=== PATIENT | female | born 1950 | race Caucasian/White ===

== ENCOUNTER 2022-03-13 10:47 | Outpatient (RCR) | payer MEDICARE, BC, SELFPAY | END 2022-05-11 12:13 | disposition home or self-care (01) | PROVIDERS: PCP Family Medicine; Visit Provider Family Medicine | DX: M17.0 Bilateral primary osteoarthritis of knee (principal); Z51.89 Encounter for other specified aftercare | CPT/HCPCS: 97110; 97161 ==

== ENCOUNTER 2022-08-31 08:27 | Day surgery (SDC) | payer MEDICARE, BC, SELFPAY ==
[2022-08-31] VITALS (24 sets, daily range): BP systolic 89–137; BP diastolic 53–91; PULSE 52–104; RESP 12–18; TEMP 35.8–36.8; O2SAT 90–100; BMI 40.4
--- NOTE | 2022-08-31 08:46 | CRLHL7_ITS ---
For Patients: As a result of the Cures Act, medical imaging exams and procedure reports are released immediately into your electronic medical record. You may view this report before your referring provider. If you have questions, please contact your health care provider. Indication: POST OP RIGHT TKA Technique: Two views right knee Findings/Impression: Hardware from a right total knee arthroplasty is in satisfactory position. Bone alignment is normal. No sign of acute fracture. Postop changes are within normal limits. Dictated by Denys Kent MD @ 08/31/2022 1:25:31 PM (Electronically Signed)
[2022-08-31] MEDS: SODIUM CHLORIDE 0.9 % (FLUSH) 10 ML SYRINGE IVF (09:09)
[2022-08-31] MEDS: LACTATED RINGERS 1000 ML 1,000 ML 100 ML IV ×2 (09:09→11:07)
[2022-08-31] MEDS: CELECOXIB 200 MG CAPSULE PO ×2 (09:15→20:37)
[2022-08-31] MEDS: OXYCODONE (CR) 10 MG TAB.ER.12H PO (09:15)
[2022-08-31] MEDS: ACETAMINOPHEN 500 MG TABLET 1000 MG PO ×2 (09:15→18:25)
--- NOTE | 2022-08-31 09:20 | W.ANESCHARGE ---
Anesthesia Charges Start Date/Time Anesthesia Start Date: 08/31/22 Anesthesia Start Time: 09:45 Stop Date/Time Anesthesia Stop Date: 08/31/22 Anesthesia Stop Time: 11:39 Summary Extremes of Age - Over 70 or under 1: MDA
[2022-08-31] MEDS: MIDAZOLAM HCL 1 MG/ML inj IVP (09:27)
[2022-08-31] MEDS: fentaNYL 100 MCG/2 ML inj IVP (09:27)
--- NOTE | 2022-08-31 09:31 | SUR.PREOP ---
TIME?OUT:?925 PT/Luci Garcia RN/Dr. Cortes MDA?VERIFICATION?OF?SURGICAL?SITE right knee,?PROCEDURE,?AND?CONSENT OBTAINED?PRIOR?TO?INVASIVE?PROCEDURE.
--- NOTE | 2022-08-31 09:54 | P.NB_ITS ---
Nerve Block Nerve Block Time Seen by Provider: 09:28 Date Seen: 08/31/22 Type of block requested by surgeon for post-operative analgesia: adductor canal Side: right Time out performed: Yes Verification of patient name: Yes Verification of date of : Yes Site marking: site marked Name of person performing procedure: Cortes Continuous monitoring Was continuous monitoring of O2 sat, B/P, monitoring coordinator, recorded every 15 minutes?: Yes Procedure Checklist: sterile prep, needles and gloves Ultrasound guided. Images saved: Yes Medications given in 5ml increments after negative aspiration: Ropivicaine %: 0.5 mL: 20 Needle gauge: 20 Decadron (mg): 10 Precedex (mcg): 25 Patient tolerated procedure well: Yes Additional comments: Needle noted adjacent to nerve Block Charges Block Charge (with Pro Fee): Femoral Nerve Use of Ultrasound Machine for Block: Yes- US Guidance/pain block
--- NOTE | 2022-08-31 09:54 | P.NB_ITS ---
Nerve Block Nerve Block Time Seen by Provider: 09:28 Date Seen: 08/31/22 Type of block requested by surgeon for post-operative analgesia: geniculars Side: left Time out performed: Yes Verification of patient name: Yes Verification of date of : Yes Site marking: site marked Name of person performing procedure: Cortes Continuous monitoring Was continuous monitoring of O2 sat, B/P, surfboard maker, recorded every 15 minutes?: Yes Procedure Checklist: sterile prep, needles and gloves Medications given in 5ml increments after negative aspiration: Ropivicaine %: 0.5 mL: 9 Needle gauge: 25 Patient tolerated procedure well: Yes Block Charges Block Charge (with Pro Fee): Genicular Nerve Block Use of Ultrasound Machine for Block: No
[2022-08-31] MEDS: CEFAZOLIN 2 GM in 0.9 % SODIUM CHLORIDE Mini-bag 100 ML IVPB ×2 (09:55→16:11)
[2022-08-31] MEDS: TRANEXAMIC ACID 100 MG/ML INJ 1000 MG IV (10:00)
--- NOTE | 2022-08-31 11:06 | P.ORPRC_ITS ---
Procedure Note Date of procedure: 08/31/22 Procedure: PREOPERATIVE DIAGNOSIS: 1. Right knee osteoarthritis, primary, severe POSTOPERATIVE DIAGNOSIS: 1. Right knee osteoarthritis, primary, severe PROCEDURE: 1. Right total knee arthroplasty SURGEON: Pratik Velásquez MD. EARLY CHILDHOOD: [place] ROWE - Of note, a skilled perinatal breastfeeding assistant was critical for this case to aid in patient positioning, tissue retraction, limb manipulation/positioning, and closure. ANESTHESIA: Spinal anesthetic IMPLANTS: DePuy J&J all cemented TKA - Attune PS femur size 5 narrow, size 5 tibia, 5 poly spacer, 35 mm patella TOURNIQUET: 75 minutes at 300 torr EBL: 50 ml COMPLICATIONS: None evident INDICATIONS: The patient is a pleasant 71-year-old female who has experienced severe right knee pain and difficulty bearing weight. Workup included x-rays which revealed severe osteoarthrosis in the knee. Given the deformity, the dysfunction, and the pain, as well as the failure of nonoperative management, recommendation was made for surgery. FINDINGS: Full-thickness chondral loss broadly throughout the medial and patellofemoral compartments. To a lesser degree but still significant lateral compartment chondromalacia. Large effusion upon entering the joint. Significant synovitis diffusely throughout the knee. DESCRIPTION OF PROCEDURE: Following a thorough discussion of risks, benefits, and alternatives consent was obtained and the right knee was marked. The patien t was brought to the operating room and placed supine on the operating table. Induction of anesthesia was undertaken. 2 g IV Ancef and 1 g tranexamic acid was administered within 1 hr of incision preoperatively. Proper time-out was performed identifying proper patient, site, procedure. The operative extremity was prepped and draped in the appropriate sterile fashion using ChloraPrep after the patient was positioned supine with all bony prominences well padded. A longitudinal, anterior, midline skin incision was made starting approximately 3cm proximal to the superior pole of the patella and advanced distal to the tibial tubercle. A median parapatellar arthrotomy was created. A medial subperiosteal sleeve was created with knife, tinajero elevator and curved osteotome. The retropatellar fatpad was resected and the synovium in the suprapatellar pouch excised to visualize the anterior femoral cortex. Femoral preparation was performed via an intramedullary guide. Step drill allowed access into the femoral canal. The distal cutting guide was placed with 5? of valgus and 10 mm cut on the distal femur. Femur was sized using a posterior referencing guide in 3? of external rotation. This found have a best fit with the sizing noted above. The 4 in 1 cutting block was then placed, and the distal femur shaped accordingly. The box cut was then created and the trial implant inserted to confirm appropriate fit. We turned our attention to the proximal tibia. Extramedullary guide was utilized for cutting with the goal of being 90 degree cut from the mechanical axis of the tibia in the varus/valgus plane utilizing tibial crest as the primary alignment. Initially a 2 mm resection was performed from the medial tibial plateau. Ultimately, balancing was achieved in both flexion and extension in both varus and valgus. The knee was able to achieve full extension as well comfortably. The patella was initially measured and found have a thickness of 21 mm. It was resected back to approximately 14 mm. It was sized to be a best fit with as noted above. This was drilled, trial placed. All trials were placed and found to have an excellent stability and balance. At this stage, trial implants were removed, the knee was thoroughly irrigated with normal saline, and the cement was mixed. After irrigation, the knee was thoroughly dried, and cement placed, with the real tibial and femoral implants placed along with the patella. Trial poly spacer was placed and confirmed to have excellent range of motion and full extension, and the real poly spacer opened and inserted. All extra cement was removed, and a 3 min Betadine soak performed. Finally, a final irrigation round with normal saline was performed. Closure performed with 0 Vicryl and #0 Stratafix for the quad ten don/retinaculum. 2-0 Vicryl for the subcutaneous and 4-0 Stratafix for subcuticular closure. Dressings were applied and the patient was awoken from anesthesia after the tourniquet deflated and transferred the PACU in stable condition. A skilled perinatal breastfeeding assistant was critical for this case to aid in patient positioning, tissue retraction, bone exposure, limb manipulation/positioning, patient safety, and closure. PLAN: 1. Weight bear as tolerated operative extremity. 2. 23 hr perioperative antibiotics. 3. Ice. 4. PT/OT consults for ambulation assistance/mobility education. 5. Social work consult for discharge planning. 6. DVT prophylaxis with at SCDs, Dru Hose, and aspirin twice daily.
--- NOTE | 2022-08-31 11:47 | W.ANESCHARGE ---
Anesthesia Charges Start Date/Time Anesthesia Start Date: 08/31/22 Anesthesia Start Time: 09:45 Stop Date/Time Anesthesia Stop Date: 08/31/22 Anesthesia Stop Time: 11:39 Summary Extremes of Age - Over 70 or under 1: PLANS EXAMINER
--- NOTE | 2022-08-31 14:20 | PM.IMCN1 ---
Date of Consult Patient: Michael Patient Consult date: 08/31/22 Requesting Physician: Orthopedics Primary Care Provider: Silvia Marina MD Consult Narrative Reason for consult: hypertension, hyperlipidemia Narrative: Jasmyn Benson is a 71 year old female who underwent an uneventful right total knee arthroplasty today. She is doing well postoperatively and has no complaints. Her was with her in the room I saw her. Review of Systems Status of ROS: Reports: 10 or more systems reviewed and unremarkable except as noted in History and below PFSH PFSH Medical History (Updated 08/31/22 @ 16:07 by Lula Ordonez MD) Allergic rhinitis Benign neoplasm of colon Carcinoma in situ of breast (~2004) Coronary artery disease COVID-19 Depression Hyperlipidemia Hypertension Obesity Osteopenia Surgical History (Updated 08/31/22 @ 16:07 by Lual Ordonez MD) H/O bilateral mastectomy (2004) H/O cataract extraction (~2020) Hx of colonoscopy Hx of tubal ligation Status post ORIF of fracture of ankle (04/23/14) Family History Mother Myocardial infarction High blood pressure Social History (Updated 08/31/22 @ 16:04 by Lula Ordonez MD) Narrative: Lives independently with . Travels on cruises periodically. Smoking Status: Former smoker What tobacco products do you use: cigarettes Smoking quit date/years: >15 years ago Do you use any of these nicotine containing products: None Second hand tobacco smoke exposure: No How often do you have a drink containing alcohol: 4 or more times a week Alcohol type: wine How many standard drinks containing alcohol do you have on a typical day: 1 or 2 How often do you have six or more drinks on one occasion: Never AUDIT-C Alcohol total score: 4 Non-prescribed substance use: denies use Caffeine: Yes (coffee, 3 cups/day) service: No Meds Home Medications and Allergies Home Medications Medication Instructions Recorded Confirmed Type amlodipine 5 mg tablet 5 mg PO DAILY 03/10/22 08/31/22 History atenolol 25 mg tablet 25 mg PO DAILY 03/10/22 08/31/22 History hydrochlorothiazide 12.5 mg capsule 12.5 mg PO DAILY 03/10/22 08/31/22 History nitroglycerin 0.4 mg sublingual 0.4 mg sublingual Q5M PRN 03/10/22 08/31/22 History tablet triamcinolone acetonide 0.1 % 1 applic topical TID PRN 03/10/22 08/28/22 History topical cream atorvastatin 20 mg tablet 20 mg PO DAILY 08/28/22 08/31/22 History calcium carbonate 500 mg-vitamin 2 tab PO DAILY 08/28/22 08/31/22 History D3 3.125 mcg (125 unit) tablet fluticasone propionate 50 1 spray intranasal BID 08/28/22 08/31/22 History mcg/actuation nasal spray,suspension glucosamine sulfate 500 mg capsule 1,000 mg PO DAILY 08/28/22 08/31/22 History sertraline 50 mg tablet 50 mg PO DAILY 08/28/22 08/31/22 History Allergies Allergy/AdvReac Type Severity Reaction Status Date / Time No Known Drug Allergies Allergy Verified 08/31/22 08:39 Exam Narrative: Exam Narrative: General: No acute distress. Awake alert oriented x3. HEENT: Normocephalic atraumatic, pupils equally round and reactive to light and accommodation. Oropharynx clear. Mucous membranes are moist. No cervical lymphadenopathy, thyromegaly or carotid bruits. No JVD. Cardiovascular: Regular rate and rhythm. No murmurs, gallops, or rubs. Chest: No increased work of breathing. Clear to auscultation bilaterally. No crackles or wheezes. Abdomen: Bowel sounds present. Soft, nondistended, nontender. No hepatosplenomegaly or masses. Extremities: Right knee bandage is clean, dry, and intact. No edema, no cyanosis or clubbing. Skin: No jaundice, no pallor, no rashes. Const: Vital Signs, click to edit/add: Vital Signs - 24 hr 08/31/22 09:26 08/31/22 09:27 08/31/22 09:30 Temperature 98.2 F Pulse Rate 60 60 60 Pulse Rate [Pulse Oximeter] Respiratory Rate 16 16 16 Blood Pressure 135/61 118/62 113/64 Blood Pressure [Le ft Arm] Pulse Oximetry 92 94 97 Oxygen Delivery Me thod Room Air Nasal Cannula Nasal Cannula Oxygen Flow Rate 2 2 08/31/22 11:35 08/31/22 11:40 08/31/22 11:44 Temperature 97.3 F L Pulse Rate 52 L 54 L 56 L Pulse Rate [Pulse Oximeter] Respiratory Rate 14 12 14 Blood Pressure 89/53 L 120/79 110/66 Blood Pressure [Le ft Arm] Pulse Oximetry 97 99 99 Oxygen Delivery Me thod OxyMask OxyMask OxyMask Oxygen Flow Rate 6 6 6 08/31/22 11:50 08/31/22 11:55 08/31/22 12:00 Temperature Pulse Rate 55 L 57 L 56 L Pulse Rate [Pulse Oximeter] Respiratory Rate 16 16 14 Blood Pressure 100/67 111/63 108/71 Blood Pressure [Le ft Arm] Pulse Oximetry 100 100 100 Oxygen Delivery Me thod OxyMask OxyMask OxyMask Oxygen Flow Rate 6 6 6 08/31/22 12:05 08/31/22 12:15 08/31/22 12:30 Temperature 96.8 F L 96.4 F L Pulse Rate 55 L 58 L Pulse Rate [Pulse Oximeter] 56 L Respiratory Rate 14 16 16 Blood Pressure 109/72 Blood Pressure [Le ft Arm] 107/76 110/64 Pulse Oximetry 99 92 Oxygen Delivery Me thod OxyMask Nasal Cannula Nasal Cannula Oxygen Flow Rate 6 2 2 08/31/22 12:45 08/31/22 13:00 08/31/22 13:15 Temperature 96.8 F L 96.4 F L 97.0 F L Pulse Rate Pulse Rate [Pulse Oximeter] 60 59 L 78 Respiratory Rate 16 18 18 Blood Pressure Blood Pressure [Le ft Arm] 100/60 108/66 112/65 Pulse Oximetry 91 91 92 Oxygen Delivery Me thod Nasal Cannula Nasal Cannula Nasal Cannula Oxygen Flow Rate 2 2 2 08/31/22 13:45 Temperature 97.0 F L Pulse Rate Pulse Rate [Pulse Oximeter] 76 Respiratory Rate 18 Blood Pressure Blood Pressure [Le ft Arm] 101/65 Pulse Oximetry 92 Oxygen Delivery Me thod Nasal Cannula Oxygen Flow Rate 2 Labs Labs: Ordering Physician: Pratik Velásquez M.D. Date of Service: 08/31/22 Procedure(s): XR knee RT 2V Accession Number(s): [id number] cc: Pratik Velásquez M.D.; Silvia Marina M.D.~ For Patients: As a result of the Cures Act, medical imaging exams and procedure reports are released immediately into your electronic medical record. You may view this report before your referring provider. If you have questions, please contact your health care provider. Indication: POST OP RIGHT TKA Technique: Two views right knee Findings/Impression: Hardware from a right total knee arthroplasty is in satisfactory position. Bone alignment is normal. No sign of acute fracture. Postop changes are within normal limits. Dictated by Denys Kent MD @ 08/31/2022 1:25:31 PM (Electronically Signed) Assessment and Plan Assessment and plan (1) Status post total knee replacement, right: Problem comment: 08/31/19 [place] Status: Acute (2) Hypertension: Status: Chronic (3) Hyperlipidemia: Problem comment: 07/06/2010 TC 211, TG 101, HDL 48, LDL 143 goal LDL <70 statin started 06/20 Status: Chronic (4) Coronary artery disease: Problem comment: Angiogram 06/2010 showed 40% left anterior descending lesion and the rest of the coronary arteries were normal Status: Chronic Plan 71-year-old female status post right total knee arthroplasty for osteoarthritis. Doing well postoperatively. Pressures postoperatively are borderline low and I will hold her usual antihypertensive is tomorrow morning. She can restart these upon discharge or if her blood pressures become elevated. Continue atorvastatin in the hospital.
[2022-08-31] MEDS: OXYCODONE 5 MG TABLET PO (14:34)
--- NOTE | 2022-08-31 16:31 | PC.NURSE ---
Pt has had stable vital signs since arrival to floor. Pt able to ambulate with assist of one and a walker. Pt talkative. Pt has had pain ranging from 0-5 managed by ice and medications see EMAR. Pt's surgical site on right knee is dry and intact. Pt was on 2L but has been on RA and tolerating well. Pt has not had nausea or vomiting and has been advancing diet and tolerating well. Pt worked with therapy this afternoon and tolerated well with minimal pain.
[2022-08-31] MEDS: ATORVASTATIN 10 MG TABLET 20 MG PO (20:36)
[2022-08-31] MEDS: SENNOSIDES 1 TAB TABLET 2 TAB PO (20:37)
[2022-08-31] MEDS: ASPIRIN 81 MG TABLET EC PO (20:37)
[2022-09-01] MEDS: ACETAMINOPHEN 500 MG TABLET 1000 MG PO ×2 (00:30→06:26)
[2022-09-01] MEDS: CEFAZOLIN 2 GM in 0.9 % SODIUM CHLORIDE Mini-bag 100 ML IVPB ×2 (00:31→09:42)
[2022-09-01 03:00] VITALS: BP 120/65; PULSE 77; RESP 18; TEMP 36.4; O2SAT 92
[2022-09-01 06:45] LABS: Hematocrit 36.8 % (33.0-51.0); Hemoglobin* 12.2 gm/dL (12.0-16.0); Immature Granulocytes Pct Auto 0.2 %; Lymphocytes Percent Auto 4.8 % (20-44); Mean Corpuscular HGB Conc 33 gm/dL (32-36); Mean Corpuscular Hemoglobin 31 pg (26-34); Mean Corpuscular Volume 94 fL (80-100); Monocytes Percent Auto 7.2 % (0.0-11.0); Neutrophils Percent Auto 87.8 % (42.0-72.0); Platelet Count* 238 K/uL (140-440); RDW Coefficient of Variation % 12.3 % (11.5-15.5); White Blood Count* 14.04 K/uL (4.50-11.00)
[2022-09-01 06:48] LABS: Slide Review Reflex No
[2022-09-01 06:58] LABS: Sodium* 137 mmol/L (135-149)
[2022-09-01 06:59] LABS: Potassium* 4.1 mmol/L (3.6-5.1)
[2022-09-01 07:00] VITALS: BP 144/79; PULSE 68; RESP 16; TEMP 36.4; O2SAT 91
[2022-09-01 07:01] LABS: Creatinine* 0.6 mg/dL (0.5-1.5); Est. Creatinine Clearance* 43.91; Estimated Glomerular Filt Rate 95 ml/min
[2022-09-01 07:02] LABS: Blood Urea Nitrogen* 27 mg/dL (7-30)
--- NOTE | 2022-09-01 07:28 | PC.NURSE ---
VSS on RA. Patient is alert and oriented x4, able to verbalize needs to staff. Pain managed with scheduled Tylenol and PRN oxycodone. Requires assist of one with transfers.
--- NOTE | 2022-09-01 09:23 | PM.ORPN ---
Subjective Subjective Date Seen: 09/01/22 Principal diagnosis: Status postop day 1 right total knee arthroplasty Interval history: Patient reports doing well. No acute events over night. Pain managed with scheduled /PRN medications and ice. DVT prophylaxis 81 mg aspirin by mouth twice daily, bilateral knee high Dru stockings, and SCDs. Reports no passing gas. Denies fevers, chills, aches, N/V, CP, SOB/TELLEZ, tachycardia, or lightheadedness. Ortho Exam Narrative Exam Narrative: -Patient appears comfortable; no apparent acute distress -Alert and oriented times 3 -Operative knee mildly swollen; soft tissues supple; no ecchymosis; no erythematous streaking Warmth appropriate -Surgical dressing clean, dry, intact; no drainage -Bilateral calfs soft; no significant swelling, edema, tenderness, erythema, discoloration, warmth, or palpable cords -2+ DP/PT pulses, intact dermatomes and myotomes distally (5/5 strength) Const Vital Signs, click to edit/add: Vital Signs - 24 hr 08/31/22 09:26 08/31/22 09:27 08/31/22 09:30 Temperature 98.2 F Pulse Rate 60 60 60 Pulse Rate [Pulse Oximeter] Respiratory Rate 16 16 16 Blood Pressure 135/61 118/62 113/64 Blood Pressure [Left Arm] Pulse Oximetry 92 94 97 Oxygen Delivery Method Room Air Nasal Cannula Nasal Cannula Oxygen Flow Rate 2 2 08/31/22 11:35 08/31/22 11:40 08/31/22 11:44 Temperature 97.3 F L Pulse Rate 52 L 54 L 56 L Pulse Rate [Pulse Oximeter] Respiratory Rate 14 12 14 Blood Pressure 89/53 L 120/79 110/66 Blood Pressure [Left Arm] Pulse Oximetry 97 99 99 Oxygen Delivery Method OxyMask OxyMask OxyMask Oxygen Flow Rate 6 6 6 08/31/22 11:50 08/31/22 11:55 08/31/22 12:00 Temperature Pulse Rate 55 L 57 L 56 L Pulse Rate [Pulse Oximeter] Respiratory Rate 16 16 14 Blood Pressure 100/67 111/63 108/71 Blood Pressure [Left Arm] Pulse Oximetry 100 100 100 Oxygen Delivery Method OxyMask OxyMask OxyMask Oxygen Flow Rate 6 6 6 08/31/22 12:05 08/31/22 12:15 08/31/22 12:30 Temperature 96.8 F L 96.4 F L Pulse Rate 55 L 58 L Pulse Rate [Pulse Oximeter] 56 L Respiratory Rate 14 16 16 Blood Pressure 109/72 Blood Pressure [Left Arm] 107/76 110/64 Pulse Oximetry 99 92 Oxygen Delivery Method OxyMask Nasal Cannula Nasal Cannula Oxygen Flow Rate 6 2 2 08/31/22 12:45 08/31/22 13:00 08/31/22 13:15 Temperature 96.8 F L 96.4 F L 97.0 F L Pulse Rate Pulse Rate [Pulse Oximeter] 60 59 L 78 Respiratory Rate 16 18 18 Blood Pressure Blood Pressure [Left Arm] 100/60 108/66 112/65 Pulse Oximetry 91 91 92 Oxygen Delivery Method Nasal Cannula Nasal Cannula Nasal Cannula Oxygen Flow Rate 2 2 2 08/31/22 13:45 08/31/22 15:28 08/31/22 14:15 Temperature 97.0 F L 96.8 F L Pulse Rate Pulse Rate [Pulse Oximeter] 76 100 Respiratory Rate 18 18 Blood Pressure Blood Pressure [Left Arm] 101/65 117/77 Pulse Oximetry 92 93 97 Oxygen Delivery Method Nasal Cannula Nasal Cannula Oxygen Flow Rate 2 2 08/31/22 15:15 08/31/22 16:15 08/31/22 17:35 Temperature 97.5 F L 97.7 F 97.7 F Pulse Rate Pulse Rate [Pulse Oximeter] 66 64 90 Respiratory Rate 18 18 18 Blood Pressure Blood Pressure [Left Arm] 118/77 119/77 123/68 Pulse Oximetry 93 90 90 Oxygen Delivery Method Nasal Cannula Room Air Room Air Oxygen Flow Rate 2 08/31/22 18:15 08/31/22 19:00 08/31/22 23:00 Temperature 97.8 F 97 F L Pulse Rate Pulse Rate [Pulse Oximeter] 104 H 76 Respiratory Rate 18 18 Blood Pressure Blood Pressure [Left Arm] 125/91 H 137/80 Pulse Oximetry 90 92 93 Oxygen Delivery Method Room Air Room Air Oxygen Flow Rate 08/31/22 23:00 08/31/22 23:00 09/01/22 03:00 Temperature 97.1 F L 97.6 F Pulse Rate Pulse Rate [Pulse Oximeter] 65 65 77 Respiratory Rate 18 18 18 Blood Pressure Blood Pressure [Left Arm] 112/77 120/65 Pulse Oximetry 93 92 Oxygen Delivery Method Room Air Room Air Oxygen Flow Rate Assessment and Plan Assessment and plan (1) Status post total knee replacement, right: Problem details: POD 1 right total knee arthroplasty; Dr. Velásquez 08/31/2022 Status: Acute (2) Hypertension: Status: Chronic (3) Hyperlipidemia: Problem details: 07/06/2010 TC 211, TG 101, HDL 48, LDL 143 goal LDL <70 statin started 06/20 Status: Chronic (4) Coronary artery disease: Problem details: Angiogram 06/2010 showed 40% left anterior descending lesion and the rest of the coronary arteries were normal Status: Chronic Plan - Complete 23 hour perioperative antibiotics. - PT/OT consult for education and assistance. - Social work consult for discharge planning - Prescribed analgesics as needed - DVT prophylaxis: 81 mg aspirin by mouth twice daily, bilateral knee high Dru Hose stockings and SCDs - Anticipation is for discharge to home with spouse 09/01/2022 if the patient remains medically stable, pain is controlled, and they are safe with mobilization.
--- NOTE | 2022-09-01 09:26 | P.DS_ITS ---
DS: Providers Provider Date Seen: 09/01/22 Date of admission: Med/Surg Recovery 08/31/2022 Primary care physician: Silvia Marina MD Consults: 08/31/22 12:29 Consult to Occupational Therapy [CONS] Routine Comment: Reason(s) for OT Consult:: ADLs Prior to Discharge Any Restrictions?:: See Comment Comment: See nursing activity order for any restrictions. Consult to Physical Therapy [CONS] Routine Comment: Ambulate in the moyer today. Reason(s) for PT Consult:: TKA TX Protocol POD#0 Any Restrictions?:: See Comment Comment: See nursing activity order for any restrictions. Consult to Physician [CONS] Routine Comment: Consulting Provider: Hospitalists Has provider been notified: No Consult to Spinning Mule Tender [CONS] Routine Comment: Reason for Consult:: Discharge Planning Needs Attending Physician on discharge: Pratik Velásquez MD Date of Discharge: 09/01/22 DS: Diagnosis Discharge Diagnosis (1) Status post total knee replacement, right: Status: Acute Problem details: POD 1 right total knee arthroplasty; Dr. Velásquez 08/31/2022 DS: Summary Hospital Course Hospital Course: The patient has a history of right knee osteoarthritis, primary, severe. After appropriate preoperative evaluation, the patient underwent right total knee arthroplasty. Postoperatively given anticoagulation for deep vein thrombosis prophylaxis. They progressed to PT/OT and were felt ready and prepared for discharge to home with appropriate pain medication and anticoagulation medications. Status at Discharge Functional status at discharge: uses cane/walker Overall status at discharge: patient is progressing back to baseline Time Spent with Patient Time attestation: Total time spent providing and/or coordinating discharge services: Time spent: Less than 30 minutes Exam Const: Vital Signs, click to edit/add: Vital Signs - 24 hr 08/31/22 09:27 08/31/22 09:30 08/31/22 11:35 Temperature 97.3 F L Pulse Rate 60 60 52 L Pulse Rate [Pulse Oximeter] Respiratory Rate 16 16 14 Blood Pressure 118/62 113/64 89/53 L Blood Pressure [Le ft Arm] Pulse Oximetry 94 97 97 Oxygen Delivery Me thod Nasal Cannula Nasal Cannula OxyMask Oxygen Flow Rate 2 2 6 08/31/22 11:40 08/31/22 11:44 08/31/22 11:50 Temperature Pulse Rate 54 L 56 L 55 L Pulse Rate [Pulse Oximeter] Respiratory Rate 12 14 16 Blood Pressure 120/79 110/66 100/67 Blood Pressure [Le ft Arm] Pulse Oximetry 99 99 100 Oxygen Delivery Me thod OxyMask OxyMask OxyMask Oxygen Flow Rate 6 6 6 08/31/22 11:55 08/31/22 12:00 08/31/22 12:05 Temperature Pulse Rate 57 L 56 L 55 L Pulse Rate [Pulse Oximeter] Respiratory Rate 16 14 14 Blood Pressure 111/63 108/71 109/72 Blood Pressure [Le ft Arm] Pulse Oximetry 100 100 99 Oxygen Delivery Me thod OxyMask OxyMask OxyMask Oxygen Flow Rate 6 6 6 08/31/22 12:15 08/31/22 12:30 08/31/22 12:45 Temperature 96.8 F L 96.4 F L 96.8 F L Pulse Rate 58 L Pulse Rate [Pulse Oximeter] 56 L 60 Respiratory Rate 16 16 16 Blood Pressure Blood Pressure [Le ft Arm] 107/76 110/64 100/60 Pulse Oximetry 92 91 Oxygen Delivery Me thod Nasal Cannula Nasal Cannula Nasal Cannula Oxygen Flow Rate 2 2 2 08/31/22 13:00 08/31/22 13:15 08/31/22 13:45 Temperature 96.4 F L 97.0 F L 97.0 F L Pulse Rate Pulse Rate [Pulse Oximeter] 59 L 78 76 Respiratory Rate 18 18 18 Blood Pressure Blood Pressure [Le ft Arm] 108/66 112/65 101/65 Pulse Oximetry 91 92 92 Oxygen Delivery Me thod Nasal Cannula Nasal Cannula Nasal Cannula Oxygen Flow Rate 2 2 2 08/31/22 15:28 08/31/22 14:15 08/31/22 15:15 Temperature 96.8 F L 97.5 F L Pulse Rate Pulse Rate [Pulse Oximeter] 100 66 Respiratory Rate 18 18 Blood Pressure Blood Pressure [Le ft Arm] 117/77 118/77 Pulse Oximetry 93 97 93 Oxygen Delivery Me thod Nasal Cannula Nasal Cannula Oxygen Flow Rate 2 2 08/31/22 16:15 08/31/22 17:35 08/31/22 18:15 Temperature 97.7 F 97.7 F 97.8 F Pulse Rate Pulse Rate [Pulse Oximeter] 64 90 104 H Respiratory Rate 18 18 18 Blood Pressure Blood Pressure [Le ft Arm] 119/77 123/68 125/91 H Pulse Oximetry 90 90 90 Oxygen Delivery Me thod Room Air Room Air Room Air Oxygen Flow Rate 08/31/22 19:00 08/31/22 23:00 08/31/22 23:00 Temperature 97 F L Pulse Rate Pulse Rate [Pulse Oximeter] 76 65 Respiratory Rate 18 18 Blood Pressure Blood Pressure [Le ft Arm] 137/80 Pulse Oximetry 92 93 Oxygen Delivery Me thod Room Air Oxygen Flow Rate 08/31/22 23:00 09/01/22 03:00 Temperature 97.1 F L 97.6 F Pulse Rate Pulse Rate [Pulse Oximeter] 65 77 Respiratory Rate 18 18 Blood Pressure Blood Pressure [Le ft Arm] 112/77 120/65 Pulse Oximetry 93 92 Oxygen Delivery Me thod Room Air Room Air Oxygen Flow Rate DS: Data Data Completed and Pending Labs on day of discharge: Labs from last 24 hours 09/01/22 09/01/22 05:54 05:54 WBC 14.04 H RBC 3.90 L Hgb 12.2 Hct 36.8 MCV 94 MCH 31 MCHC 33 RDW Coeff of Morris 12.3 Plt Count 238 Neut % (Auto) 87.8 H Lymph % (Auto) 4.8 L Bent % (Auto) 7.2 Eos % (Auto) 0.0 Baso % (Auto) 0.0 Neut # (Auto) 12.30 H Lymph # (Auto) 0.70 L Bent # (Auto) 1.00 H Eos # (Auto) 0.00 Baso # (Auto) 0.00 Sodium 137 Potassium 4.1 BUN 27 Creatinine 0.6 Estimated Creat Clear 43.91 Estimated GFR 95 Discharge Plan Discharge Disposition: Home, Self-Care Discharging Surgeon: Pratik Velásquez Follow-Up Appointment: 1 week PO with Art WALSH Prescriptions: New sennosides-docusate sodium [Senna-S] 8.6-50 mg tablet 1 - 4 tab-cap PO BID PRN (Reason: constipation) Qty: 60 0RF Rx Instructions: Hold medication if experiencing loose stools. aspirin 81 mg tablet,delayed release (DR/EC) 81 mg PO BID Qty: 60 0RF Rx Instructions: Medication to help prevent blood clots postoperatively; take TWICE daily. celecoxib 100 mg capsule 100 mg PO BID Qty: 60 0RF acetaminophen 500 mg capsule 500 - 1,000 mg PO Q6H MDD 4000mg PRNQty: 100 0RF oxycodone 5 mg tablet 2.5 - 5 mg PO Q4-6H MDD 6 PRN (Reason: pain) Qty: 42 0RF Rx Instructions: Take as needed for postop pain: 2.5mg mild pain, 5mg moderate-severe pain; wean as tolerated. Continued nitroglycerin 0.4 mg tablet, sublingual 0.4 mg sublingual Q5M PRN triamcinolone acetonide 0.1 % cream 1 applic topical TID PRN amlodipine 5 mg tablet 5 mg PO DAILY hydrochlorothiazide 12.5 mg capsule 12.5 mg PO DAILY Label Comments: TAKE 1 CAPSULE BY MOUTH EVERY DAY atenolol 25 mg tablet 25 mg PO DAILY atorvastatin 20 mg tablet 20 mg PO DAILY calcium carbonate-vitamin D3 500 mg-3.125 mcg (125 unit) tablet 2 tab PO DAILY fluticasone propionate 50 mcg/actuation spray,suspension 1 spray INTRANASAL BID glucosamine sulfate 500 mg capsule 1,000 mg PO DAILY sertraline 50 mg tablet 50 mg PO DAILY Activity Level: Activity as Tolerated, Weight Bearing as Tolerated, Use Cane and Use Walker Activity Detail: Wound: ?Do not remove original dressing; we will remove this at first postop visit in 1 week. Only remove dressing if integrity is in question. ?No immersing wound in water; showering okay; light scrub with your hand and body soap, rinse, dab dry ?Sutures are under the skin, will dissolve; allow surgical glue to come off naturally; do not scrub the wound or apply ointments/lotions ?Call our office with any redness that streaks, excessive drainage from the wound, or wound gapping. Ice/Elevate: ?Ice as needed for swelling and discomfort (cryocuff or ice pack); elevate frequently above the heart TROY socks: ?Wear for 1 month, remove for 1 hour 3 times per day ?These are frustrating to take on/off, but are important for blood clot prevention for 1 month after surgery Blood Clot Prevention (DVT): ?Medication: 81 mg aspirin by mouth twice daily (1 month) Driving: ?Do not drive while taking narcotic pain medication ?Anticipate 4-6 weeks no driving if operative leg is driving leg Dental: ?No elective dental work for 6 months post-op. If there is an urgent/emergent dental need, contact our office for an antibiotic prescription. Smoking/Alcohol: ?Do not smoke; do no drink alcohol especially when taking postoperative oral narcotic medication Seek Care from you Primary Care Provider if you experience the following issues in the postoperative phase and beyond: ?Bacterial infections such as: pneumonia, bacterial skin infection (cellulitis), UTI, high fever, chills unrelated to the operative body part - call your primary care physician urgently for treatment in hopes to protect your health and the metal implant. Referrals: ?PT, OT per patient preference - evaluate treat total knee arthroplasty protocol (gait training, ROM, ADLs) Follow up: ?Ortho surgeon follow-up in 6 weeks; repeat radiographs three views operative knee ?PA-C visit in 1 week *If there are any acute concerns regarding your surgery, please call our orthopedic clinic ([phone]) Discharge Diet: Heart Healthy (2 gm sodium, low fat) Patient Instructions: Surgical Site Infections (DC) Forms: Work/School Release Follow-up: Art Barros PA-C [Physician In Store Demonstrator] - 09/10/22 9:50 am ([facility]) Silvia Marina MD [Primary Care Provider] - Discharge Orders: Discharge Order (Routine); Ordered 09/01/22 Ordered By: Art Barros Consulting provider completed their portion of the discharge: Yes
[2022-09-01] MEDS: CELECOXIB 200 MG CAPSULE PO (09:42)
[2022-09-01] MEDS: SENNOSIDES 1 TAB TABLET 2 TAB PO (09:43)
[2022-09-01] MEDS: SERTRALINE 50 MG TABLET PO (09:44)
[2022-09-01] MEDS: GLUCOSAMINE SULFATE 500 MG CAPSULE 1000 MG PO (09:47)
[2022-09-01] MEDS: ASPIRIN 81 MG TABLET EC PO (09:47)
--- NOTE | 2022-09-01 11:24 | PC.SOCIAL ---
Met with pt. and spouse to discuss discharge plans. Pt. plans to discharge home with her spouses support. Pt. does not feel she will need any additional resources for assistance at home but is aware she can contact protective services social worker if she needs assistance.
--- NOTE | 2022-09-01 13:08 | PC.NURSE ---
Pt alert and oriented, pleasant. Pt's vitals stable. Pt denies nausea, controlled pain, voiding without difficulty. Pt cleared by therapies for d/c, ordered d/c, pt excited to go home, denies concerns. Discharge instructions gone over with patient, questions answered.
== END 2022-09-01 12:00 | disposition home or self-care (01) ==
LOC: OR 08:27 → MEDSURG 08:30
PROVIDERS: PCP Family Medicine; Visit Provider Orthopaedic Surgery Sports Medicine
PROC: (CPT 27447; principal; 2022-08-31 10:00)
DX: M17.11 Unilateral primary osteoarthritis, right knee (principal); I10 Essential (primary) hypertension; I25.10 Atherosclerotic heart disease of native coronary artery without angina pectoris; M85.80 Other specified disorders of bone density and structure, unspecified site; E66.01 Morbid (severe) obesity due to excess calories; Z68.41 Body mass index [BMI] 40.0-44.9, adult; Z85.3 Personal history of malignant neoplasm of breast; E78.5 Hyperlipidemia, unspecified; G89.18 Other acute postprocedural pain
CPT/HCPCS: 27447; 1402; 36415; 64447; 64454; 73560; 76942; 82565; 84132; 84295; 84520; 85025; 97110; 97116; 97161; 97165; 97530; 97535; 99100; A9270; C1776; J0690; J1100; J2250; J2370; J2405; J2704; J2795; J3010; J7120

== ENCOUNTER 2022-10-22 09:00 | Outpatient (RCR) | payer MEDICARE, BC, SELFPAY ==
--- NOTE | 2022-08-18 15:44 | PT.OPEX ---
PT [place] [facility] Start: 08/17/22 13:28 Freq: Status: Active Protocol: Document 08/18/22 07:26 SELVIN (Rec: 08/18/22 07:34 SELVIN [id number]) E-signed By Leatha Loco, PT Physical Therapy Outpatient Evaluation Insurance Information Recert Due Date 11/16/22 Insurance Name Medicare B,Blue Cross/Blue [employer] Medical Diagnosis OA of R knee (pre-op diagnosis ) Treating Diagnosis R knee pain limited R knee AROM weakness gait deficits Referring MD Dr Velásquez Mae Vines presents to PT with diagnosis of R knee OA with upcoming surgery for a R TKA on 08-31-22. Symptoms started about 2 years ago and have worsened and has become more limiting. She is current independent with all activities but limited mobility due to her R knee symptoms. Rates her R knee pain as a 10/10 at worst. Pain interferes with her ability to ambulating stairs, transfers, and walking. Pt is completely independent with her ADLs currently. Lives with her spouse who will be able to assist as needed after surgery. Does have a walker at home and no other AD. Will be able to live on main level for bedroom and bathroom. Goals for therapy are to regain total use of her R knee . Pain Comments 10/10 at worst Precautions Treatment Precautions/Contraindications OA - B knees. R worse than L HTN Assessment Assessment/Impression 71 yo client presents with c/o R knee pain due to OA. R TKA is scheduled for 08-31-22. Moderate antalgic gait pattern with decreased wt shift to the R and limited R knee AROM throughout gait cycle - no AD. R knee AROM (supine): 0-10- 90; L knee AROM: 0-0-110. Overall strength in B LE is WFL but weakness with R SLR (4 -/5). Pt did receive her home program for her post op recovery. Reviewed exs and pt did feel comfortable with the exs by the end of her session. Review of stairs with pt for correct mechanics. Did use SE cane on steps with 1 railing, in case pt is not able to grab both railings to get in/out her house. Plan is to continue with further skilled PT services post op including use of therapeutic exercise, therapeutic activities, neuromuscular re- ed, manual therapy, gait training, and self cares for symptom reduction. Plan of Care Rehabilitation Potential Good Physical Therapy Goals ST. Pt will be educated in TKA pre/post op safety, mobility, and exercises with HO provided within 1 visit. MET Pt returning to PT for post op treatment after R TKA surgery 08/31/22. Her PT goals will be updated post op Coordination/Communication With Referral Source Treatment Plan/Direct Interventions Gait Training,Joint Mobilization,Manual Therapy, Neuromuscular Re-ed,Self-Care/ Home Management,Therapeutic Activities,Therapeutic Exercises Frequency/Duration 1-2 times a week for up to 12 weeks Pt will be seen 1 time for pre op visit. Surgery is scheduled for 08/31/22 - will increase frequency to 2 times a week post op Patient Will Be Discharged From Therapy Completion of LTG(s),Skills Plateau,Independent w/HEP, Independently Progressing Evaluation Billing Untimed Code Treatment Minutes 30 Complexity Moderate Certification Information Initial Certification Date 08/18/22 Ending Certification Date 11/16/22 Provider Signature Shows Agreement With POC & Medical Necessity Physician Signature & Date Requested Please Sign/Date Here Physician Comment/Change : Physician NPI Number #
== END 2022-11-09 10:25 | disposition home or self-care (01) ==
PROVIDERS: PCP Family Medicine; Visit Provider Orthopaedic Surgery Sports Medicine
DX: M17.11 Unilateral primary osteoarthritis, right knee (principal); Z96.651 Presence of right artificial knee joint; R26.81 Unsteadiness on feet; R26.9 Unspecified abnormalities of gait and mobility; M62.89 Other specified disorders of muscle; M25.561 Pain in right knee; Z51.89 Encounter for other specified aftercare
CPT/HCPCS: 97110; 97112; 97116; 97140; 97162; 97164; 97535

== ENCOUNTER 2023-10-01 09:40 | Outpatient (CLI) | payer MEDICARE, BC, SELFPAY | END 2023-10-01 09:41 | disposition home or self-care (01) | LOC: CT 09:41 | PROVIDERS: PCP Family Medicine; Visit Provider Orthopaedic Surgery Sports Medicine | DX: M19.011 Primary osteoarthritis, right shoulder (principal); Z01.818 Encounter for other preprocedural examination | CPT/HCPCS: 73200 ==

== ENCOUNTER 2023-11-22 08:34 | Day surgery (SDC) | payer MEDICARE, BC, SELFPAY ==
[2023-11-22] VITALS (29 sets, daily range): BP systolic 98–148; BP diastolic 65–117; PULSE 53–91; RESP 16–20; TEMP 35.5–36.7; O2SAT 89–96; BMI 38.9
--- OUTSIDE RECORDS SUMMARY | 2023-11-22 08:37 | XMS_ITS | Clinical Summary ---
Author Name Unknown Organization [facility] Address [place], [place] [address] Care Team Providers Care Reimbursement Manager Name Role Phone Laina, Silvia Zhu MD Primary Care Provider Viktor Wellington MD Unavailable Unavailabl e Ollie Swift MD Unavailable Unavail able SaleemClay reno Unavailable [phone] Allergies No known active allergies Medications Medication Sig Dispensed Refills Start Date End Date Status CALCIUM CARBONATE/VITAMIN D3 (CALCIUM 600 + D ORAL) Take 2 Tabs by mouth once daily. 07/05/2010 Active glucosamine sulfate (GLUCOSAMINE) 500 mg tab Take 1 tablet by mouth 3 times daily. 0 10/22/2014 Active fluticasone (50 mcg per actuation) nasal solution (FLONASE)Indications: Rhinitis, unspecified type Inhale 1 [place] into both nostrils 2 times daily. 1 Bottle 02/06/2020 Active nitroglycerin (NITROSTAT) 0.4 mg sublingual tabletIndications:Cor onary artery disease due to lipid rich plaque Place 1 Tablet (0.4 mg) under the tongue every 5 minutes if needed for Chest Pain (Maximum of 3 doses.). 10 Tablet 03/09/2022 Active triamcinolone (ARISTOCORT; KENALOG) 0.1 % creamIndications:Skin rash Apply topically to affected area(s) three times daily. 60 g 1 03/09/2022 Active Aduwx-9-EOW-EPA-Fish Oil 1,000 mg (120 mg-180 mg) cap Take 1 Capsule (1,000 mg) by mouth. 0 03/10/2023 Active amLODIPine (NORVASC) 5 mg tabletIndications:Ess ential hypertension Take 1 Tablet (5 mg) by mouth once daily. 90 Tablet 3 03/10/2023 Active atenoloL (TENORMIN) 25 mg tabletIndications:Ess ential hypertension Take 1 Tablet (25 mg) by mouth once daily. 90 Tablet 3 03/10/2023 Active atorvastatin (LIPITOR) 20 mg tabletIndications:Hyp erlipidemia, unspecified hyperlipidemia type Take 1 Tablet (20 mg) by mouth once daily. 90 Tablet 3 03/10/2023 Active hydroCHLOROthiazide 12.5 mg capsuleIndications:Es sential hypertension Take 1 Capsule (12.5 mg) by mouth once daily. 90 Capsule 3 03/10/2023 Active sertraline (ZOLOFT) 50 mg tabletIndications:Dys thymic disorder Take 1 Tablet (50 mg) by mouth once daily. 90 Tablet 3 03/10/2023 Active Active Problems Problem Noted Date Diagnosed Date Obesity, morbid 02/25/2022 Osteopenia 09/05/2013 Varicose veins 10/21/2012 Personal history of colonic polyps 10/24/2010 Overview: Colonoscopy 10/2010 diverticulosis repeat in 5 years Hyperlipidemia 07/06/2010 Overview: - 07/06/10: TC 211, TG 101, HDL 48, LDL 143 - goal LDL < 70 - statin started 06/20 Other chest pain 07/05/2010 Overview: Angiogram 06/2010 showed 40% left anterior descending lesion and the rest of the coronary arteries were normal. Allergic rhinitis, cause unspecified 05/30/2007 Dysthymic disorder 05/30/2007 Unspecified essential hypertension 05/30/2007 Benign neoplasm of colon 05/30/2007 Overview: Colonoscopy 10/2010 diverticulosis repeat in 5 years Colonoscopy 05/2016 diverticulosis repeat in 5 years Resolved Problems Problem Noted Date Diagnosed Date Resolved Date Malignant neoplasm of breast (female), unspecified site 11/25/2006 02/25/2022 Overview: Intraductal diagnosed in 2004. Had bilateral matectomy in 11/2004; in remission. Encounters Date Type Department Care Team Description 11/08/2023 9:05 AM CDT Preop Visit [facility] [address] [place] [address] Silvia Marina MD Pre-Op Exam (Right shoulder, total replacement. [facility] 11/22/23 Dr. Gould) 11/08/2023 Travel from Last 3 Months Immunizations Name Administration Dates Next Due AMB INFLUENZA IIV3 (AGE 65+ YRS) PF (Flu Clinic Only) 04/15/2018,04/17/2017 AMB Influenza, IIV3 (Age >=3 years)(Flu Clinic Only) 04/20/2013,04/08/2012,05/18/2008 AMB Influenza, IIV4 PF (=>6 mos Flulaval,Fluzone Fluarix)(Flu Clinic Only) 04/14/2019 Amb Influenza, Inact (High-d ose) (Flu Clinic Only) 04/11/2016 Amb Influenza, Inactivated A IIV4 (Age 65+ Years) Preserv Free 04/04/2020 COVID-19 vaccine (Unblab 30mcg/0.3mL) PF, MDV 09/17/2020,08/27/2020 Hepatitis A (Adult) 12/07/1997,05/04/1997,1996 Influenza A (H1N1), Inactivated 06/17/2009 Influenza A (H1N1), Inactiva anthony (Age >=3 Years) 06/17/2009 Influenza, High-dose Inactivated 04/11/2016,01/2015 Influenza, High-dose Quadriv alent Inactivated 03/30/2022 Influenza, IIV3 (Age 6-35 mos) 04/03/2011,2009,06/20/2009 Influenza, IIV3 (Age >=3 years) 04/20/20 13,04/08/2012,04/03/2011,2009,06/20/2009,05/18/2008,05/06/2007,1 07/24/2005,05/19/2005,04/27/2003 Influenza, IIV4 03/26/2014 Influenza, Inactivated AIIV4 (Age 65+ Years) Preserv Free 04/14/2021 Pneumococcal Poly,23-Valent (Pneumovax) 10/26/2016,08/28/2011 Pneumococcal conj 13-Valent (Prevnar 13) 10/22/2014 Td (Age >=7 Years) 04/20/2005 Td, Preservative Free (age > = 7 Years) 04/20/2005 Tdap 03/20/2022,08/28/2011 Yellow Fever 04/11/2010 Zoster (Shingrix-RZV, recombinant) 02/27/2019, Zoster (Zostavax-ZVL, live) 08/28/2011 Family History Medical History Relation Name Comments Blood Disease Father of Leukem [place] at 89 Psychiatric illness Father depressi on Heart Disease Mother of [place] at 77 Relation Name Status Comments Father Mother Social History Tobacco Use Types Packs/Day Years Used Date Smoking Tobacco: Former Cigarettes 1 30 0 09/10/1969 - 07/12/1999 Smokeless Tobacco: Never Tobacco Cessation:Counseling Given: Yes Alcohol Use Standard Drinks/Week Comments Yes 5 (1 standard drink = 0.6 oz pur e alcohol) 4-6 glasses of wine a week] PHQ-2 Answer Date Recorded PHQ-2 TOTAL SCORE 0 03/10/2023 Social Connections Answer Date Recorded Frequency of Communication with Friends and Fami ly 0 03/10/2023 Financial Resource Strain Answer Date R ecorded Difficulty of Paying Living Expenses 3 03/10/2023 Difficulty of Paying Living Expenses Not on file 03/10/2023 Food Insecurity Answer Date Recorded Worried About Running Out of Food in the Last Ye ar 1 03/10/2023 Transportation Needs Answer Date Record ed Lack of Transportation (Medical) 1 03/10/2023 Housing Stability Answer Date Recorded Unable to Pay for Housing in the Last Year 1 03/10/2023 Sex and Gender Information Value Date Recorded Sex Assigned at Not on file Gender Identity Not on file Sexual Orientation Not on file Obstetrics History Last Filed Vital Signs Vital Sign Reading Time Taken Comments Blood Pressure 138/80 11/08/2023 9:09 AM CDT Pulse 66 11/08/2023 9:09 AM CDT Temperature 36.9 ??C (98.4 ??F) 02/15/2019 7:42 AM CD T Respiratory Rate 18 02/15/2019 8:30 AM CDT Oxygen Saturation 96% 11/08/2023 9:09 AM CDT Inhaled Oxygen Concentration - - Weight 103.2 kg (227 lb 9.6 oz) 11/08/2023 9:09 AM CDT Height 162.6 cm (5' 4) 11/08/2023 9:09 AM CDT Body Mass Index 39.07 11/08/2023 9:09 AM CDT Plan of Treatment Health Maintenance Due Date Last Done Comments Colonoscopy through age 75 05/21/202105/21, 05/21/2016, 05/21/2016, Additional history exists Depression screening for age 12+ 03/10/2024 03/10/2023, 03/09/2022, 02/26/2021, Additional history exists Medicare Wellness for age 65+ 03/10/2024, 03/09/2022, 02/26/2021, Additional history exists Influenza for age 65+ 03/12/2024 03/30/2022 , 04/14/2021, 04/04/2020, Additional history exists BMI (ht and wt on same day) for age 18+ 11/07/2024 11/08/2023, 03/10/2023, 08/19/2022, Additional history exists Lipids for age 45-75 03/10/2028 03/10/2023, 03/09/2022, 01/03/2021, Additional history exists Tetanus booster 03/20/2032 03/20/2022, 08/12, 04/20/2005, Additional history exists Pneumococcal series for age 65+ Completed 10/26/2016, 10/22/2014, 08/28/2011 Zoster (shingles) series for age 50+ Completed 02/27/2019, 12/28/2018, 08/28/2011 Hepatitis C screening for ag e 18-79 Completed 02/06/2020 DEXA/DXA scan for age 65+ Completed 2020, 11/08/2015, 09/05/2013, Additional history exists Tdap Completed 03/20/2022, 08/28/2011 COVID-19 vaccine series Completed 04/12/20 23, 03/30/2022, 10/20/2021, Additional history exists Procedures Procedure Name Priority Date/Time Associated Diagnosis Comments EKG 12 LEAD UNIT PERFORMED Routine 11/08/2023 2:50 PM CDT Preop examination CA READING EKG - NO CHARGE, COMP ONLY Routine 11/08/2023 2:48 PM CDT Preop examination BASIC METABOLIC PANEL Routine 11/08/2023 10:29 AM CDT Unspecified essential hypertension HEMOGLOBIN Routine 11/08/2023 10:29 AM CDT Preop examination LIPID PANEL W REFLEX MEASURED LDL Routine 03/10/2023 9:57 AM CDT Hyperlipidemia, unspecified hyperlipidemia type XR DXA BONE DENSITY 2 SITES AXIAL Routine 03/05/2021 8:50 AM CDT Menopause ANTI HCV Routine 02/06/2020 11:55 AM CDT Need for hepatitis C screening test COLONOSCOPY 05/21/2016 8:01 AM MASTER MACHINIST from Last 3 Months or Most Recently Relevant to Health Maintenance Results * EKG 12 LEAD UNIT PERFORMED (11/08/2023 2:50 PM CDT) Silvia Marina MD EKG ORD * CA READING EKG - NO CHARGE, COMP ONLY (11/08/2023 2:48 PM CDT) Silvia Marina MD PB - PROVIDER R KATE * HEMOGLOBIN (11/08/2023 10:29 AM CDT) HEMOGLOBIN 14.1 12.0 - 16.0 g/dL 11/08/2023 10:39 AM CDT [facility] MCV 93 80 - 100 fL 11/08/2023 10:39 AM CDT [facility] Blood BLOOD SPECIMEN / Unknown Venipuncture / Unknown 11/08/2023 10:29 AM CDT 11/08/2023 10:30 AM CDT Silvia Marina MD HEMATOLOGY [facility] [address] [place] [address], [place] [phone] * (ABNORMAL) BASIC METABOLIC PANEL (11/08/2023 10:29 AM CDT) [facility] SODIUM 140 136 - 145 mmol/L 11/08/2023 8:00 PM T [facility] POTASSIUM 4.7 3.5 - 5.1 mmol/L 11/08/2023 8:00 PM [facility] CHLORIDE 103 98 - 107 mmol/L 11/08/2023 8:00 PM T [facility] CO2,TOTAL 26 22 - 29 mmol/L 11/08/2023 8:00 PM [facility] ANION GAP 11 5 - 18 11/08/2023 8:00 PM T [facility] GLUCOSE 107(H) 70 - 99 mg/dL 11/08/2023 8:00 PM [facility] CALCIUM 9.6 8.8 - 10.2 mg/dL 11/08/2023 8:00 PM T [facility] BUN 18 8 - 23 mg/dL 11/08/2023 8:00 PM [facility] CREATININE 0.63 0.50 - 0.90 mg/dL 11/08/2023 8:00 PM [facility] BUN/CREAT RATIO 29(H) 10 - 20 8:00 PM [facility] eGFR >90 >90 mL/min/1.7 3m2 11/08/2023 8:00 PM [facility] Comment:As of 2021, eG FR is calculated by the CKD-EPI creatinine equation without race adjustment. ??eGFR can be influenced by muscle mass, exercise, and diet. ??The reported eGFR is an estimation only and is only applicable if the renal function is stable. Blood BLOOD SPECIMEN / Unknown Venipuncture / Unknown 11/08/2023 10:29 AM CDT 11/08/2023 10:30 AM CDT Silvia Marina MD CHEMISTRY [facility] [address] [place] [address], * LIPID PANEL W REFLEX MEASURED LDL (03/10/2023 9:57 AM CDT) CHOLESTEROL,TOTAL 144 100 - 199 mg/dL 03/10/2023 7:32 PM CDT [facility] Comment: Cholesterol, Total Reference Ranges Desirable <200 mg/dL Borderline 200-239 mg/dL High >=240 mg/dL TRIGLYCERIDES 79 <150 mg/dL 03/10/2023 7:32 PM CDT [facility] HDL CHOLESTEROL 55 >40 mg/dL 7:32 PM CDT [facility] NON-HDL CHOLESTEROL 89 <145 mg/dl 03/10/2023 7:32 PM CDT [facility] CHOL/HDL RATIO 2.62 <4.50 03/10/2023 7:32 PM CDT [facility] LDL CHOLESTEROL 73 <=130 mg/dL 03/10/2023 7:32 PM CDT [facility] VLDL CHOLESTEROL 16 <=30 mg/dL 03/10/2023 7:32 PM CDT [facility] PROVIDER ORDERED STATUS RANDOM 03/10/2023 7:32 PM CDT [facility] Blood BLOOD SPECIMEN / Unknown Venipuncture / Unknown 03/10/2023 9:57 AM CDT 03/10/2023 9:59 AM CDT Silvia Marina MD CHEMISTRY [facility] [address] [place] [address], [place] * (ABNORMAL) XR DXA BONE DENSITY 2 SITES AXIAL (03/05/2021 8:50 AM CDT) Anatomical Region Laterality Modality Spine, HIPS, HIPL, HIPR Other Impressions 03/14/2021 2:47 PM CDT Osteopenia. RECOMMENDATIONS: The National Osteoporosis Foundation recommends pharmacologic treatment for patients with T-scores of -2.5 or less, patients with prior history of fragility fractures, or patients with 10-year probability of greater than 3% at hips or greater than 20% of suffering major osteoporotic fractures. Recommend continued optimization of calcium and vitamin D intake through dietary means and/or supplementation and regular exercise. Repeat scan recommended in 3-5 years. Lizabeth Pollock PA-C ?? Narrative 03/14/2021 2:47 PM CDT For Patients: Results are automatically released to your [facility] account once available, in compliance with federal regulations. This means that you may see your results before your provider has had a chance to review them. Please allow 2-3 business days for your provider to comment on the results. XR DXA Bone Mineral Density (BMD) EXAM LOCATION: [address] [address] PATIENT NAME: Jasmyn Benson DATE OF : 1950 EXAM DATE: 03/05/2021 REQUESTING PROVIDER: Silvia Marina MD GENDER AT : female HEIGHT: 5' 4.25 (02/26/2021) WEIGHT: ??243 lb 12.8 oz (02/26/2021) MENOPAUSAL STATUS: Postmenopausal RACE/ETHNICITY: White RISK FACTORS: Family History of Hip Fracture (parental), Smoking (prior) and White Race CURRENT MEDICATION FOR BONE LOSS: NONE INDICATION: Follow-up of existing osteopenia COMPARISON DATE(S): 2015 at [facility] most recent scan here DXA scans are compared to prior studies for a patient only when the two (or more) studies were performed on the same scanner. It is not possible to compare data generated on one scanner to data from another because there are not standards in DXA equipment. This applies even if the two scanners are made by the same certified lactation counselor. PROCEDURE: Dual-energy x-ray absorptiometry performed with routine technique. Reporting is completed in the form of a T-score. The T-score represents the standard deviation from peak bone mass based on young healthy adult. A Z-score is used for diagnosis in premenopausal women, and for men under the age of 50. FINDINGS: RESULT LUMBAR SPINE L2 - L4 ??BMD: 1.121 g/cm2 T-Score: -0.7 Z-Score: -0.1 Comparison to scan ??in 2012: ??Increase 2.9%. RESULT FEMORAL NECK Right Femoral Neck BMD: 0.796 g/cm2 Right Femoral Neck T-Score: -1.7 Right Femoral Neck Z-Score: -0.7 Comparison to most recent scan ??in 2016: ??Decrease in BMD by 0.116 g/cm??. Left Femoral Neck BMD: 0.984 g/cm2 Left Femoral Neck T-Score: -0.4 Left Femoral Neck Z-Score: + 0.6 Comparison to most recent scan ??in 2016: ??Increase in BMD by 0.020 g/cm??. RESULT TOTAL HIP Right Total Femur BMD: 0.995 g/cm2 Right Hip T-Score: -0.1 Right Hip Z-Score: + 0.6 Left Total Femur BMD: 1.075 g/cm2 Left Hip T-Score: + 0.5 Left Hip Z-Score: + 1.2 WHO criteria: Normal: T-score at or above -1 SD Osteopenia: T-score between -1.1 and -2.4 SD Osteoporosis: T-score at or below -2.5 SD FRAX RISK CALCULATION (USED FOR OSTEOPENIA ONLY): 10-year probability of major osteoporotic fracture: 15.2%. 10-year probability of hip fracture: 2.4%. Silvia Marina MD DEXA * ANTI HCV (02/06/2020 11:55 AM CDT) HEPATITIS C ANTIBODY Non-React tawny Non-React tawny 02/06/2020 8:00 PM CDT [facility] Comment:Antibodies to HCV no t detected; does not exclude the possibility of exposure to HCV. Blood BLOOD SPECIMEN / Unknown Venipuncture / Unknown 02/06/2020 11:55 AM CDT 02/06/2020 11:57 AM CDT Silvia Marina MD SEND OUTS ALLFORMERLY [facility] [address] [place] [address], [place] * COLONOSCOPY (05/21/2016 8:01 AM MASTER MACHINIST) 05/21/2016 8:01 AM MASTER MACHINIST Narrative 05/21/2016 8:01 AM MASTER MACHINIST Addendum Number: 1 ?? Addendum Date: 05/21/2016 10:02:55 AM ? Note recommendation error. No biopsy was performed and no pathology was ? obtained during this procedure. Rancho Stoll MD 05/21/2016 10:04:45 AM This report has been signed electronically. Patient Name: Jasmyn Benson ? Procedure Date: 05/21/2016 ? Gender: Female ? Date of : 1950 Admit Type: Outpatient ? Procedure: ?Colonoscopy Proceduralist: ?Rancho Stoll MD Indications/Pre-Op Diagnosis: Surveillance: Personal history of adenomatous ?polyps on last colonoscopy 5 years ago Medications: ?Fentanyl 100 micrograms IV, Midazolam 2 mg IV, ?Zofran 4 mg IV, The level of sedation ?administered was moderate ? Procedure Description: ? The patient had risks, benefits and alternatives explained to and gave ? informed consent. The patient had a stable cardiopulmonary status and ? judged an adequate candidate for conscious sedation. ? The PCF-Q290AL [id number] was passed through the anus and advanced to the ? cecum, identified by appendiceal orifice and ileocecal valve. The ? colonoscopy was performed without difficulty. The patient tolerated the ? procedure well. The quality of the bowel preparation was excellent. The ? ileocecal valve, appendiceal orifice, and rectum were photographed. ? Complications: ?No immediate complications. Estimated Blood Loss & Specimen: ? Estimated blood loss: none. Specimen collected - None ? Findings: ? The perianal and digital rectal examinations were normal. ? Multiple small and large-mouthed diverticula were found in the sigmoid ? colon and in the descending colon. There was narrowing of the colon in ? association with the diverticular opening. ? The exam was otherwise without abnormality on direct and retroflexion ? views. ? Impressions/Post-Op Diagnosis: ? - Moderate diverticulosis in the sigmoid colon and in the descending ? colon. There was narrowing of the colon in association with the ? diverticular opening. ? - The examination was otherwise normal on direct and retroflexion views. ? - No specimens collected. ? Recommendation: ? - Patient has a contact number available for emergencies. The signs and ? symptoms of potential delayed complications were discussed with the ? patient. Return to normal activities tomorrow. Written discharge ? instructions were provided to the patient. ? - Resume previous diet. ? - Continue present medications. ? - Await pathology results. ? - Repeat colonoscopy in 5 years for surveillance. ? Rancho Stoll MD 05/21/2016 8:27:24 AM This report has been signed electronically. Note Initiated On: 05/21/2016 8:01 AM Procedure Code(s): ?--- Professional --- ?G0105, Colorectal cancer screening; colonoscopy ?on individual at high risk Diagnosis Code(s): ?--- Professional --- ?Z86.010, Personal history of colonic polyps ?K57.30, Diverticulosis of large intestine ?without perforation or abscess without bleeding CPT copyright 2015 [employer]. All rights reserved. The codes documented in this report are preliminary and upon metalsmith review may be revised to meet current compliance requirements. Scope In: 8:07:51 AM Scope Withdrawal Time 0 hours 9 minutes 18 seconds Scope Out: 8:22:06 AM Procedure Note Rancho Stoll MD - 05/21/2016 10:04 AM CST Addendum Number: 1 Addendum Date: 05/21/2016 10:02:55 AM Note recommendation error. No biopsy was performed and no pathologywas obtained during this procedure. Rancho Stoll MD 05/21/2016 10:04:45 AM This report has been signed electronically. Patient Name: Jasmyn Benson Procedure Date: 05/21/2016 Gender: Female Date of : 1950 Admit Type: Outpatient Procedure: Colonoscopy Proceduralist: Rancho Stoll MD Indications/Pre-Op Diagnosis: Surveillance: Personal history ofadenomatous polyps on last colonoscopy 5 years ago Medications: Fentanyl 100 micrograms IV, Midazolam 2 mgIV, Zofran 4 mg IV, The level of sedation administered was moderate Procedure Description: The patient had risks, benefits and alternatives explained to andgave informed consent. The patient had a stable cardiopulmonary status and judged an adequate candidate for conscious sedation. The PCF-Q290AL [id number] was passed through the anus and advanced tothe cecum, identified by appendiceal orifice and ileocecal valve. The colonoscopy was performed without difficulty. The patient toleratedthe procedure well. The quality of the bowel preparation was excellent.The ileocecal valve, appendiceal orifice, and rectum were photographed. Complications: No immediate complications. Estimated Blood Loss & Specimen: Estimated blood loss: none. Specimen collected - None Findings: The perianal and digital rectal examinations were normal. Multiple small and large-mouthed diverticula were found in thesigmoid colon and in the descending colon. There was narrowing of the colonin association with the diverticular opening. The exam was otherwise without abnormality on direct and retroflexion views. Impressions/Post-Op Diagnosis: - Moderate diverticulosis in the sigmoid colon and in the descending colon. There was narrowing of the colon in association with the diverticular opening. - The examination was otherwise normal on direct and retroflexionviews. - No specimens collected. Recommendation: - Patient has a contact number available for emergencies. The signsand symptoms of potential delayed complications were discussed with the patient. Return to normal activities tomorrow. Written discharge instructions were provided to the patient. - Resume previous diet. - Continue present medications. - Await pathology results. - Repeat colonoscopy in 5 years for surveillance. Rancho Stoll MD 05/21/2016 8:27:24 AM This report has been signed electronically. Note Initiated On: 05/21/2016 8:01 AM Procedure Code(s): --- Professional --- G0105, Colorectal cancer screening;colonoscopy on individual at high risk Diagnosis Code(s): --- Professional --- Z86.010, Personal history of colonicpolyps K57.30, Diverticulosis of large intestine without perforation or abscess withoutbleeding CPT copyright 2015 [employer]. All rights reserved. The codes documented in this report are preliminary and upon metalsmith reviewmay be revised to meet current compliance requirements. Scope In: 8:07:51 AM Scope Withdrawal Time 0 hours 9 minutes 18 seconds Scope Out: 8:22:06 AM Rancho Stoll MD PROCEDURE ORD from Last 3 Months or Most Recently Relevant to Health Maintenance Advance Directives Documents on File Type Date Recorded Patient Occupational Health Nurse Supervisor Expl anation Healthcare Directive 11/07/2013 9:47 AM [facility], 11/22/2004 * Full Code (Latest Code Status on File) Date Activated Date Inactivated Comments 07/05/2010 10:22 PM 07/07/2010 7:21 PM Care Teams Reimbursement Manager Relationship Specialty Start Date End Date Silvia Marina MD [address] [place] [address] PCP - General Family Practice 08/03/11 Viktor Wellington MD [address] [place] [address] General Surgery Surgery - General 08/29/12 Ollie Swift MD [address] [place] [address] Orthopedics Surgery - Orthopedics 09/05/13 Clay Saleem [address] [place] [id number] Ophthalmology Flash Designer 10/25/15
[2023-11-22] MEDS: LACTATED RINGERS 1000 ML 1,000 ML 100 ML IV ×3 (09:25→12:29)
[2023-11-22] MEDS: SODIUM CHLORIDE 0.9 % (FLUSH) 10 ML SYRINGE IVF (09:29)
[2023-11-22] MEDS: OXYCODONE (CR) 10 MG TAB.ER.12H PO (09:34)
[2023-11-22] MEDS: ACETAMINOPHEN 500 MG TABLET 1000 MG PO ×3 (09:34→20:04)
[2023-11-22] MEDS: MIDAZOLAM HCL 1 MG/ML inj IVP (10:32)
[2023-11-22] MEDS: fentaNYL 100 MCG/2 ML inj IVP (10:32)
--- NOTE | 2023-11-22 10:33 | SUR.PREOP ---
TIME?OUT:?1031 PT/RN/MDA?VERIFICATION?OF?SURGICAL?SITE,?PROCEDURE,?AND?CONSENT OBTAINED?PRIOR?TO?INVASIVE?PROCEDURE. all in agreement
--- NOTE | 2023-11-22 11:02 | W.PM.H&PU ---
History & Physical Update History & Physical Update H&P Reviewed and patient assessed: No changes noted
--- NOTE | 2023-11-22 11:03 | XR_ITS ---
Patient: TYREE WEBBER Facility:?[facility] Patient ID:?[id number] Site Patient ID:?[id number]. Site :?[id number] Study:?XRay-Shoulder Right POST OP TSA-11/22/2023 2:22:59 PM Ordering Physician:ASHISH Final Report: Indication: Postop Technique: Two views right shoulder Findings/Impression: Hardware from a right total shoulder arthroplasty is in satisfactory position. Bone alignment is normal. No sign of acute fracture. Postop changes are within normal limits. Dictated by Denys Kent MD @ 11/23/2023 12:49:46 PM Signed by:?Denys Kent MD @11/23/2023 12:49:46 PM (Electronic Signature)
[2023-11-22] MEDS: CEFAZOLIN 2 GM in 0.9 % SODIUM CHLORIDE Mini-bag 100 ML IVPB ×2 (11:53→18:20)
[2023-11-22] MEDS: TRANEXAMIC ACID 100 MG/ML INJ 1000 MG IV (11:54)
--- NOTE | 2023-11-22 12:43 | W.PM.NB ---
Nerve Block Nerve Block Time Seen by Provider: 10:32 Date Seen: 11/22/23 Type of block requested by surgeon for post-operative analgesia: supraclavicular Side: right Time out performed: Yes Verification of patient name: Yes Verification of date of : Yes Site marking: site marked Name of person performing procedure: Cortes Continuous monitoring Was continuous monitoring of O2 sat, B/P, school lunch monitor, recorded every 15 minutes?: Yes Procedure Checklist: sterile prep, needles and gloves Ultrasound guided. Images saved: Yes Medications given in 5ml increments after negative aspiration: Ropivicaine %: 0.5 mL: 20 Needle gauge: 22 Decadron (mg): 10 Precedex (mcg): 25 Patient tolerated procedure well: Yes Block Charges Block Charge (with Pro Fee): Brachial Plexus Use of Ultrasound Machine for Block: Yes- US Guidance/pain block
--- NOTE | 2023-11-22 12:43 | W.ANESCHARGE ---
Anesthesia Charges Start Date/Time Anesthesia Start Date: 11/22/23 Anesthesia Start Time: 11:30 Stop Date/Time Anesthesia Stop Date: 11/22/23 Anesthesia Stop Time: 13:59 Summary Extremes of Age - Over 70 or under 1: MDA
--- NOTE | 2023-11-22 13:27 | P.ORPRC_ITS ---
Procedure Note Date of procedure: 11/22/23 Procedure: PREOPERATIVE DIAGNOSIS: 1. Right shoulder osteoarthrosis, primary, severe 2. Right long head of the biceps tendinopathy and tenosynovitis POSTOPERATIVE DIAGNOSIS: 1. Right shoulder osteoarthrosis, primary, severe with fair to poor cuff tissue quality 2. Right long head of the biceps tendinopathy and tenosynovitis PROCEDURE: 1. Right reverse shoulder arthroplasty. 2. Right long head of biceps open tenodesis SURGEON: Pratik Velásquez MD. FINISHING OPERATOR: Art Barros PA-C - Of note, a skilled chiropractic assistant was critical for this case to aid in patient positioning, tissue retraction, limb manipulation/positioning, retraction for glenoid exposure, which was challenging, awareness and protection of critical structures, and closure. ANESTHESIA: General plus supraclavicular block EBL: 200 ml IMPLANTS: DJ0 surgical Altivate humeral stem size 10 small shell, short with P2 porous coating vitamin E neutral poly small socket insert RSP glenoid base plate P2 porous coating with 4 perimeter locking screws 32 neutral glenosphere with retaining screw COMPLICATIONS: None evident INDICATIONS: The patient is a pleasant 73-year-old female who has experienced severe right shoulder pain and difficulty with use. Workup included imaging which revealed severe osteoarthrosis along with concern for rotator cuff quality. Physical exam was consistent with associated pain. Given the deformity, the dysfunction, and the pain, and failure of nonoperative management, recommendation was made for surgery. DESCRIPTION OF PROCEDURE: Following a thorough discussion of risks, benefits, and alternatives, consent was obtained and the left shoulder was marked. The patient was brought to the operating room and placed supine on the operating table. Induction of anesthesia was undertaken. 2 g IV Ancef and 1 g tranexamic acid was administered within 1 hr of incision preoperatively. Appropriate time- out was performed identifying proper patient, site, and procedure. The operative extremity was prepped and draped in the appropriate sterile fashion using ChloraPrep after the patient was positioned in the lazy beach chair position with head in neutral alignment and all bony prominences well padded. A longitudinal incision was made for deltopectoral approach. Deltoid was retracted laterally. Cephalic vein was identified and retracted laterally as well. Vein was spared/protected throughout the case. The clavipectoral fascia was identified and divided longitudinally staying lateral to the conjoined tendon / coracoid. The conjoined tendon was protected with a blunt Hohmann. The long head of the biceps tendon was identified and the bicipital sheath released. The upper 1/3 border of the pectoralis major was also released from its insertion. The long head of the biceps was tenodesed to the pectoralis major tendon. The remaining proximal tendon tissue was excised. The rotator cuff was inspected and found to have good integrity with the subscapularis but fair integrity with a supraspinatus], and a decision for a reverse shoulder arthroplasty was confirmed. The long head of biceps, of note, was significant flattened, thickened, with abundant tenosynovitis. A subscapularis cuff of tissue was left via tenotomy for later repair with the remaining subscapularis released in a subperiosteal fashion with the Bovie. This was tagged for later repair. The 3 sisters were cauterized. The upper subscapularis was released from the capsule with a curved Elizondo scissors towards the glenoid. The inferior subscapularis was divided from the capsular tissue on its caudal surface with particular caution for the axillary nerve. This was palpated anterior to the subscapularis both prior to and near the finish of the case. Inferior humeral head osteophytes were excised with caution taken throughout the case with regards to the axillary nerve. The humerus was dislocated, and humeral head cut completed. Then a protector plate was applied. We turned our attention to the glenoid. The humerus was retracted posteriorly. The subscap was protected anteriorly and the labrum/long head biceps origin was excised circumferentially. The capsule was released along the anterior and inferior portions of the glenoid cautiously with a Garcia elevator being careful not to penetrate deep. The glenoid had appropriate exposure, and was prepared with the cannulated system with a target of approximately 5-10? of inferior tilt and neutral anteversion (patient had 9 ? of retroversion initially). [Utilizing the match Point 3D printed guide, the guide pin was placed. The 3D printed jig removed and after placing the guide pin, the tap was placed followed by the glenoid reaming. The real base plate was opened, and inserted, and excellent compression/purchase was achieved with the central screw. Peripheral screws were then drilled, measured, and placed. The glenosphere was then placed consistent with the preoperative plan utilizing the above noted glenosphere. After securing the glenosphere with the locking, torque limited screw, attention was turned back to the humerus. A canal finder was placed followed by various reamers by hand. The real humeral stem was then opened and inserted with excellent metaphyseal fit and stability. Trial poly was placed and the shoulder reduced. Excellent reduction and stability achieved with appropriate tension on the conjoined tendon. At this stage, trial implants were removed, and the real implants inserted and the shoulder reduced. A 3 minute Betadine soak was performed followed by a thorough irrigation with normal saline. Subscapularis was repaired with #1 PDS to the cuff of tissue on the lesser tuberosity. Excellent reapproximation of tissue achieved. Hemostasis was found to be appropriate. The deltopectoral interval was reapproximated with 0 Vicryl, subcutaneous and subcuticular closure was then performed with number 2-0 Vicryl and 4-0 Monocryl, respectively. A skilled chiropractic assistant was critical for this case to aid in patient positioning, tissue retraction, limb manipulation/positioning, retraction for glenoid exposure, which was challenging, awareness and protection of critical structures, and closure. PLAN: 1. Sling at all times for the operative upper extremity. 2. AROM of elbow, forearm, wrist, and digits as tolerated. 3. PT/OT consults for education and assistance. 4. Social consult for discharge planning. 5. 23 hr perioperative antibiotics. 6. Early ambulation, and SCDs for DVT prophylaxis. 7. Admit to the hospital for the above 8. Analgesics p.r.n.
--- NOTE | 2023-11-22 14:01 | W.ANESCHARGE ---
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
--- NOTE | 2023-11-22 14:42 | SUR.PHASEI ---
patient meets pacu d/c criteria
--- NOTE | 2023-11-22 14:48 | P.IMCN_ITS ---
Date of Consult Patient: Michael Patient Consult date: 11/22/23 Requesting Physician: Orthopedics Primary Care Provider: Silvia Marina MD Consult Narrative Reason for consult: chest heaviness Narrative: Jasmyn Benson is a 73 year old female with history of coronary artery disease, anxiety, remote history of breast cancer, hypertension, and hyperlipidemia who underwent an elective right total shoulder arthroplasty today by Dr. Lyons for osteoarthritis. She noted some chest heaviness when she woke up from surgery. According to the PACU this started on her way over to med surg. She denies SOB. Although she does not recall having anything like this before, I see in her records from [facility], where she goes to her primary care doctor, that she has had chest pain in the past for which she had an angiogram in June 2010. That showed a 40% left anterior descending lesion and the rest of the coronary arteries were normal. She does not take a daily baby aspirin, but has been on atenolol, atorvastatin, fish oil, and has nitroglycerin as needed on her medication list from [facility]. I have downloaded her EKG from [facility] done 11/08/2023 which showed sinus bradycardia with a heart rate of 56 beats per minute, otherwise normal EKG. Review of Systems Status of ROS: Reports: 10 or more systems reviewed and unremarkable except as noted in History and below [facility] Medical History (Updated 11/22/23 @ 15:35 by Lula Ordonez MD) Osteoarthritis of left knee ?M17.12 - Unilateral primary osteoarthritis, left knee (ICD-10) Osteoarthritis of right shoulder ?M19.011 - Primary osteoarthritis, right shoulder (ICD-10) Anxiety disorder ?F41.9 - Anxiety disorder, unspecified (ICD-10) Coronary artery disease ?I25.10 - Atherosclerotic heart disease of [place] coronary artery without angina pectoris (ICD-10) COVID-19 ?U07.1 - COVID-19 (ICD-10) Carcinoma in situ of breast (~2004) ?D05.90 - Unspecified type of carcinoma in situ of unspecified breast (ICD- 10) Obesity ?E66.9 - Obesity, unspecified (ICD-10) Osteopenia ?M85.80 - Other specified disorders of bone density and structure, unspecified site (ICD-10) Benign neoplasm of colon ?D12.6 - Benign neoplasm of colon, unspecified (ICD-10) Allergic rhinitis ?J30.9 - Allergic rhinitis, unspecified (ICD-10) Depression ?F32.A - Depression, unspecified (ICD-10) Hypertension ?I10 - Essential (primary) hypertension (ICD-10) Hyperlipidemia ?E78.5 - Hyperlipidemia, unspecified (ICD-10) Surgical History (Updated 11/22/23 @ 15:36 by Lula Ordonez MD) Status post total shoulder arthroplasty ?Z96.619 - Presence of unspecified artificial shoulder joint (ICD-10) Hx of colonoscopy ?Z98.890 - Other specified postprocedural states (ICD-10) Hx of tubal ligation ?Z98.51 - Tubal ligation status (ICD-10) Status post total knee replacement, 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/22) ?Z96.651 - Presence of right artificial knee joint (ICD-10) Status post ORIF of fracture of ankle (04/23/14) ?Z98.890 - Other specified postprocedural states (ICD-10) ?Z87.81 - Personal history of (healed) traumatic fracture (ICD-10) H/O cataract extraction (~2020) ?Z98.49 - Cataract extraction status, unspecified eye (ICD-10) H/O bilateral mastectomy (2004) ?Z90.13 - Acquired absence of bilateral breasts and nipples (ICD-10) Family History Mother Myocardial infarction High blood pressure Social History (Updated 11/22/23 @ 15:02 by Lula Ordonez MD) Narrative: Lives independently with . Travels on cruises periodically. Smoked 30 pack years, quit in 1999. Drinks about 5 glasses of wine a week. Problems where you live: no known problems Smoking Status: Former smoker What tobacco products do you use: cigarettes Smoking quit date/years: >15 years ago Do you use any of these nicotine containing products: None Second hand tobacco smoke exposure: No How often do you have a drink containing alcohol: 2-4 times a month Alcohol type: wine How many standard drinks containing alcohol do you have on a typical day: 1 or 2 How often do you have six or more drinks on one occasion: Never AUDIT-C Alcohol total score: 2 Non-prescribed substance use: denies use Caffeine: Yes (coffee, 3 cups/day) service: No Meds Home Medications and Allergies Home Medications Medication Instructions Recorded Confirmed Type amlodipine 5 mg tablet 5 mg PO DAILY 03/10/22 11/22/23 History atenolol 25 mg tablet 25 mg PO DAILY 03/10/22 11/22/23 History hydrochlorothiazide 12.5 mg capsule 12.5 mg PO DAILY 03/10/22 11/22/23 History nitroglycerin 0.4 mg sublingual 0.4 mg sublingual Q5M PRN 03/10/22 11/22/23 History tablet triamcinolone acetonide 0.1 % 1 applic topical TID PRN 03/10/22 08/20/23 History topical cream atorvastatin 20 mg tablet 20 mg PO DAILY 08/28/22 11/22/23 History calcium carbonate 500 mg-vitamin 2 tab PO DAILY 08/28/22 11/22/23 History D3 3.125 mcg (125 unit) tablet fluticasone propionate 50 1 spray intranasal BID 08/28/22 11/22/23 History mcg/actuation nasal spray,suspension glucosamine sulfate 500 mg capsule 1,000 mg PO DAILY 08/28/22 11/22/23 History sertraline 50 mg tablet 50 mg PO DAILY 08/28/22 11/22/23 History omega 9-prj-lvg-fish oil 100 See Rx Instructions PO QDAY 03/09/23 11/22/23 History mg-160 mg-1,000 mg capsule (Fish Oil) Allergies Allergy/AdvReac Type Severity Reaction Status Date / Time No Known Drug Allergies Allergy Verified 10/01/23 10:57 Exam Narrative: Exam Narrative: General: No acute distress. Awake alert oriented x3. HEENT: Normocephalic atraumatic, pupils equally round and reactive to light and accommodation. Oropharynx clear. Mucous membranes are moist. No cervical lymphadenopathy, thyromegaly or carotid bruits. No JVD. Cardiovascular: Regular rate and rhythm. No murmurs, gallops, or rubs. Chest: No increased work of breathing. Nontender to palpation. Clear to auscultation bilaterally. No crackles or wheezes. Abdomen: Bowel sounds present. Soft, nondistended, nontender. No hepatosplenomegaly or masses. Extremities: Right shoulder bandage is clean, dry, and intact. No lower extremity edema, no cyanosis or clubbing. Skin: No jaundice, no pallor, no rashes. Const: Vital Signs, click to edit/add: Vital Signs - 24 hr 11/22/23 09:27 11/22/23 10:32 11/22/23 10:45 Temperature 97.7 F Pulse Rate 58 L 54 L 53 L Respiratory Rate 16 16 16 Blood Pressure 140/76 H 139/65 111/66 Pulse Oximetry 96 94 94 Oxygen Delivery Me thod Room Air Nasal Cannula Nasal Cannula Oxygen Flow Rate 2 2 11/22/23 13:54 11/22/23 14:05 11/22/23 14:10 Temperature 97.1 F L Pulse Rate 80 67 63 Respiratory Rate 19 18 20 Blood Pressure 101/83 119/82 116/71 Pulse Oximetry 93 91 92 Oxygen Delivery Me thod Nasal Cannula Oxygen Flow Rate 4 3 11/22/23 14:15 11/22/23 14:20 Temperature 97.5 F L Pulse Rate 61 60 Respiratory Rate 19 20 Blood Pressure 129/72 133/72 Pulse Oximetry 91 92 Oxygen Delivery Me thod Oxygen Flow Rate 2 ECG Attestation: I personally reviewed and interpreted this ECG as follows: (11/22/2003 1:46 p.m. EKG: Normal sinus rhythm, 61 beats per minute, nonspecific ST wave abnormality. T-waves are flattened in all leads when compared to her preop EKG from 11/08/2023.) Assessment and Plan Assessment and plan (1) Status post total shoulder arthroplasty: Problem comment: 11/22/2023 right shoulder, [facility] - routine cares Status: Acute (2) Chest pain: Problem comment: In the setting of history of coronary artery disease. Concerning for the possibility of perioperative unstable angina. Differential includes anxiety, GERD, referred pain from right shoulder surgery. Will give aspirin, a dose of nitroglycerin, check chest x-ray, and labs including troponin. May so benefit from morphine if nitroglycerin is not helpful. Status: Acute (3) Anxiety disorder: Status: Chronic (4) Osteoarthritis of right shoulder: Problem comment: Severe, [id number] with erosion Status: Chronic (5) Coronary artery disease: Problem comment: Angiogram 06/2010 showed 40% left anterior descending lesion and the rest of the coronary arteries were normal Status: Chronic (6) Hyperlipidemia: Problem comment: 07/06/2010 TC 211, TG 101, HDL 48, LDL 143 goal LDL <70 statin started 06/20 Status: Chronic (7) Hypertension: Status: Chronic
--- NOTE | 2023-11-22 14:49 | XR_ITS ---
Patient: TYREE WEBBER Facility:?[facility] Patient ID:?[id number] Site Patient ID:?[id number]. Site :?[id number] Study:?XRay-Chest PORTABLE-11/23/2023 12:06:42 AM Ordering Physician:ALEXIA Final Report: INDICATION: Chest heaviness, recent shoulder surgery. TECHNIQUE: Chest 1 view. COMPARISON: None. FINDINGS: Moderate elevation of the right hemidiaphragm. Low lung volumes. Bibasilar atelectasis. No dense consolidation, pleural effusion, or pneumothorax. The cardiac silhouette appears enlarged but may be exaggerated by portable technique. Normal pulmonary vascularity. Lucency under the left hemidiaphragm is likely a bowel loop. Right reverse total shoulder arthroplasty. Soft tissue gas about the right shoulder is likely postoperative in nature. IMPRESSION: 1. Low lung volumes with bibasilar atelectasis and elevated right hemidiaphragm. 2. The cardiac silhouette appears enlarged but may be exaggerated by portable technique. 3. Postoperative changes of the right shoulder. Dictated by Tessy Fernandez MD @ 11/23/2023 1:01:39 AM Signed by:?Tessy Fernandez MD @11/23/2023 1:01:39 AM (Electronic Signature)
[2023-11-22] MEDS: NITROGLYCERIN 0.4 MG TAB.SUBL SUBLINGUAL ×2 (15:00→16:16)
[2023-11-22 15:21] LABS: Albumin* 3.9 g/dL (3.3-5.0); Chloride* 110 mmol/L (96-114); Sodium* 141 mmol/L (135-149)
[2023-11-22 15:22] LABS: Potassium* 4.1 mmol/L (3.6-5.1)
[2023-11-22 15:24] LABS: Alkaline Phosphatase* 92 U/L (40-150); Anion Gap 4 mEq/L (7-15); Aspartate Amino Transferase* 34 U/L (12-35); Bilirubin Total* 0.5 mg/dL (0.1-1.5); Carbon Dioxide* 27 mmol/L (20-32); Creatinine* 0.6 mg/dL (0.5-1.5); Est. Creatinine Clearance* 42.62; Estimated Glomerular Filt Rate 94 ml/min; Total Protein* 6.8 g/dL (6.0-8.3)
[2023-11-22 15:25] LABS: Alanine Aminotransferase* 34 U/L (4-35); Blood Urea Nitrogen* 20 mg/dL (7-30); Calcium* 8.8 mg/dL (8.4-10.6); Glucose* 128 mg/dL (60-115)
[2023-11-22 15:37] LABS: Troponin I* < 0.01 ng/mL (0.01-0.04)
[2023-11-22] MEDS: ASPIRIN 81 MG TAB.CHEW 324 MG PO (16:13)
[2023-11-22] MEDS: MORPHINE 2 MG/ML inj IVP (16:36)
[2023-11-22 17:58] LABS: Troponin I* < 0.01 ng/mL (0.01-0.04)
--- NOTE | 2023-11-22 19:28 | PC.NURSE ---
shift note: pt to room via bed @ 1437. pt rating mid sternal pressure 6/[address] Ordonez notified and EKG done, nitro tab given. rechecked BP. chest pressure unchanged. Pt received 2md nitro tab and 2 mg Morphine sulfate IV. BP rechecked and pt rating chest pressure 0/10. pt on 3L pnc O2 with sats 92-93%. LS clr. IS to 1000. pt CDB. No void. drsg to rt shoulder c/d/i with ice chiqui in place. pt moving fingers and radial pulse stronge. fingers warm with intact cap refill. pt states are is numb and feels no pain. rt arm in sling. IV patent. pt tolerated regular diet.
[2023-11-22] MEDS: SENNOSIDES 1 TAB TABLET 2 TAB PO (20:03)
[2023-11-23] MEDS: OXYCODONE 5 MG TABLET PO ×4 (00:08→08:51)
[2023-11-23] MEDS: LACTATED RINGERS 1000 ML 1,000 ML 75 ML IV (00:09)
[2023-11-23] MEDS: CEFAZOLIN 2 GM in 0.9 % SODIUM CHLORIDE Mini-bag 100 ML IVPB (01:13)
[2023-11-23 02:00] VITALS: BP 130/97; PULSE 88; RESP 18; TEMP 36.8; O2SAT 91
[2023-11-23 04:06] VITALS: TEMP 36.8
[2023-11-23] MEDS: ACETAMINOPHEN 500 MG TABLET 1000 MG PO ×2 (04:06→09:56)
--- NOTE | 2023-11-23 04:41 | PC.NURSE ---
Pt block wore off around 0330. Asked for pain meds. Pain controlled. VS unremarkable. Up SBA. No N/V. Pleasant and cooperative. RN Continued LR fluids because Pt was voiding 150 and 100 cc's per four hour periods. Will reassess in am.
--- NOTE | 2023-11-23 06:02 | PC.NURSE ---
Pt voided 250cc from 0300 to 0600. RN SL fluids. Pt Still needed 2L NC to maintain Sats in the low 90s.
[2023-11-23 06:36] LABS: Hematocrit 39.4 % (33.0-51.0); Mean Corpuscular HGB Conc 33 gm/dL (32-36); Mean Corpuscular Hemoglobin 31 pg (26-34); Mean Corpuscular Volume 93 fL (80-100); Platelet Count* 251 K/uL (140-440); Red Blood Count 4.22 m/uL (4.00-5.20); White Blood Count* 13.33 K/uL (4.50-11.00)
[2023-11-23 06:44] LABS: Slide Review Reflex No
[2023-11-23 06:57] LABS: Sodium* 140 mmol/L (135-149)
[2023-11-23 06:58] LABS: Potassium* 3.7 mmol/L (3.6-5.1)
[2023-11-23 07:00] LABS: Creatinine* 0.5 mg/dL (0.5-1.5); Est. Creatinine Clearance* 42.62; Estimated Glomerular Filt Rate 98 ml/min
[2023-11-23 07:01] LABS: Blood Urea Nitrogen* 16 mg/dL (7-30)
[2023-11-23 07:40] VITALS: PULSE 69
[2023-11-23 08:33] VITALS: PULSE 88; RESP 20; TEMP 36.7; O2SAT 95
[2023-11-23] MEDS: SENNOSIDES 1 TAB TABLET 2 TAB PO (08:50)
--- NOTE | 2023-11-23 09:31 | PM.ORPN ---
Subjective Subjective Date Seen: 11/23/23 Principal diagnosis: Status postop day 1 right reverse total shoulder arthroplasty Interval history: Patient reports doing okay; pain managed with oral medication. Per chart review and patient's history, reported substernal chest pain/discomfort in PACU. She was worked up for angina, with negative troponins and no concerning findings on chest x-ray. Reportedly has history of this. Not on antiplatelets. Is on antihypertensives and lipid lowering medications. Reports that this just discomfort has resolved. Pain managed with scheduled and PRN medications, ice. DVT prophylaxis: SCDs, walking. Denies fevers, chills, aches, N/V, CP, SOB/TELLEZ, or lightheadedness. No flatus to date. Ortho Exam Narrative Exam Narrative: -Patient appears comfortable in recliner; no apparent acute distress -Alert and oriented times 3 -Operative shoulder swollen; soft, supple tissues; no obvious erythema. No ecchymosis Warmth appropriate -Surgical dressing clean, dry, intact; no obvious drainage, no erythematous streaking peripheral to the bandage -Bilateral calves soft and supple; no significant swelling, edema, tenderness, erythema, discoloration, warmth, or palpable cords -2+ radial pulse, intact dermatomes and myotomes distally (5/5 strength) Const Vital Signs, click to edit/add: Vital Signs - 24 hr 11/22/23 10:32 11/22/23 10:45 11/22/23 13:54 Temperature 97.1 F L Pulse Rate 54 L 53 L 80 Pulse Rate [Right Pulse Oximeter] Respiratory Rate 16 16 19 Blood Pressure 139/65 111/66 101/83 Blood Pressure [Left Arm] Pulse Oximetry 94 94 93 Oxygen Delivery Method Nasal Cannula Nasal Cannula Nasal Cannula Oxygen Flow Rate 2 2 4 11/22/23 14:05 11/22/23 14:10 11/22/23 14:15 Temperature Pulse Rate 67 63 61 Pulse Rate [Right Pulse Oximeter] Respiratory Rate 18 20 19 Blood Pressure 119/82 116/71 129/72 Blood Pressure [Left Arm] Pulse Oximetry 91 92 91 Oxygen Delivery Method Oxygen Flow Rate 3 2 11/22/23 14:20 11/22/23 14:33 11/22/23 14:37 Temperature 97.5 F L 95.9 F L 95.9 F L Pulse Rate 60 61 Pulse Rate [Right Pulse Oximeter] 61 Respiratory Rate 20 18 18 Blood Pressure 133/72 122/78 Blood Pressure [Left Arm] 122/78 Pulse Oximetry 92 93 93 Oxygen Delivery Method Nasal Cannula Room Air Oxygen Flow Rate 3 11/22/23 14:40 11/22/23 14:45 11/22/23 14:56 Temperature 95.9 F L 95.9 F L 95.9 F L Pulse Rate 60 60 59 L Pulse Rate [Right Pulse Oximeter] Respiratory Rate 18 18 16 Blood Pressure 98/66 130/79 148/92 H Blood Pressure [Left Arm] Pulse Oximetry 93 92 92 Oxygen Delivery Method Room Air Room Air Room Air Oxygen Flow Rate 3 3 3 11/22/23 15:00 11/22/23 15:09 11/22/23 15:15 Temperature 96.4 F L 96.8 F L Pulse Rate 63 76 68 Pulse Rate [Right Pulse Oximeter] Respiratory Rate 16 16 Blood Pressure 113/83 113/83 Blood Pressure [Left Arm] Pulse Oximetry 89 91 Oxygen Delivery Method Room Air Room Air Oxygen Flow Rate 3 4 11/22/23 15:30 11/22/23 15:45 11/22/23 16:00 Temperature 96.8 F L 97.9 F 97.9 F Pulse Rate 68 64 64 Pulse Rate [Right Pulse Oximeter] Respiratory Rate 16 18 18 Blood Pressure 138/80 133/83 137/79 Blood Pressure [Left Arm] Pulse Oximetry 91 93 93 Oxygen Delivery Method Room Air Room Air Room Air Oxygen Flow Rate 4 4 4 11/22/23 16:30 11/22/23 17:30 11/22/23 18:30 Temperature 97.9 F 97.9 F 97.8 F Pulse Rate 72 67 87 Pulse Rate [Right Pulse Oximeter] Respiratory Rate 18 18 18 Blood Pressure 129/85 132/78 135/117 H Blood Pressure [Left Arm] Pulse Oximetry 93 92 90 Oxygen Delivery Method Room Air Room Air Room Air Oxygen Flow Rate 3 3 3 11/22/23 19:27 11/22/23 20:04 11/22/23 20:36 Temperature 97.8 F 97.8 F 97.9 F Pulse Rate 91 86 Pulse Rate [Right Pulse Oximeter] Respiratory Rate 18 18 Blood Pressure 114/76 114/71 Blood Pressure [Left Arm] Pulse Oximetry 91 92 Oxygen Delivery Method Nasal Cannula Nasal Cannula Oxygen Flow Rate 3 3 11/22/23 21:57 11/22/23 22:14 11/22/23 22:37 Temperature 98.1 F 98.1 F Pulse Rate 87 Pulse Rate [Right Pulse Oximeter] 84 Respiratory Rate 18 Blood Pressure Blood Pressure [Left Arm] 144/81 H Pulse Oximetry 91 Oxygen Delivery Method Nasal Cannula Oxygen Flow Rate 3 11/22/23 22:45 11/23/23 02:00 11/23/23 04:06 Temperature 98.2 F 98.2 F Pulse Rate Pulse Rate [Right Pulse Oximeter] 88 Respiratory Rate 18 18 Blood Pressure Blood Pressure [Left Arm] 130/97 H Pulse Oximetry 91 Oxygen Delivery Method Nasal Cannula Oxygen Flow Rate 3 11/23/23 07:40 11/23/23 08:33 Temperature 98.0 F Pulse Rate 69 Pulse Rate [Right Pulse Oximeter] 88 Respiratory Rate 20 Blood Pressure Blood Pressure [Left Arm] Pulse Oximetry 95 Oxygen Delivery Method Nasal Cannula Oxygen Flow Rate 2 Assessment and Plan Assessment and plan (1) Status post total shoulder arthroplasty: Problem details: 11/22/2023 right shoulder, [facility] - routine cares Status: Acute (2) Chest pain: Problem details: In the setting of history of coronary artery disease. Concerning for the possibility of perioperative unstable angina. Differential includes anxiety, GERD, referred pain from right shoulder surgery. Will give aspirin, a dose of nitroglycerin, check chest x-ray, and labs including troponin. May so benefit from morphine if nitroglycerin is not helpful. Status: Acute (3) Anxiety disorder: Status: Chronic (4) Osteoarthritis of right shoulder: Problem details: Severe, [id number] with erosion Status: Chronic (5) Coronary artery disease: Problem details: Angiogram 06/2010 showed 40% left anterior descending lesion and the rest of the coronary arteries were normal Status: Chronic (6) Hyperlipidemia: Problem details: 07/06/2010 TC 211, TG 101, HDL 48, LDL 143 goal LDL <70 statin started 06/20 Status: Chronic (7) Hypertension: Status: Chronic Plan - Complete 23 hour perioperative antibiotics. - PT/OT consult for education and assistance. - Social work consult for discharge planning - Prescribed analgesics as needed - DVT prophylaxis: SCDs and walking while in hospital - Anticipation is for discharge to home with spouse today, 11/23/2023 if the patient remains medically stable, pain is controlled, and they are safe with mobilization. From an orthopedic standpoint, I feel patient is safe to discharge. Internal Hospital physician will determine if she is medically safe to return home/discharge.
--- NOTE | 2023-11-23 09:46 | P.IMPN_ITS ---
Progress Note: A&P Assessment and plan (1) Status post total shoulder arthroplasty: Problem details: 11/22/2023 right shoulder, [facility] - discharging home today. Status: Acute (2) Chest pain: Problem details: - History of coronary artery disease. CXR shows R hemidiaphragm elevation, possibly from block for R shoulder surgery. Otherwise okay. Not hypoxic today. Serial troponins negative. EKG from yesterday reviewed. No appreciable difference with nitro yesterday, morphine helped. Suspect this is secondary to surgery. Will obtain outpatient ECHO and have patient f/u with PCP. Will also start her on a daily baby aspirin. Status: Acute (3) Osteoarthritis of right shoulder: Problem details: Severe, [id number] with erosion Status: Chronic (4) Hyperlipidemia: Problem details: 07/06/2010 TC 211, TG 101, HDL 48, LDL 143 goal LDL <70 statin started 06/20 Status: Chronic (5) Hypertension: Status: Chronic Subjective Time Seen by Provider: 08:24 Date Seen: 11/23/23 Interval history: Chest heaviness is gone. Her , Holden is here and says he is going to be her caregiver. She is doing well today with no complaints. Exam Narrative: Exam Narrative: General: No acute distress. Awake alert oriented. Cardiovascular: Regular rate and rhythm. No murmurs, gallops, or rubs. Chest: No increased work of breathing. Nontender to palpation. Clear to auscultation bilaterally. No crackles or wheezes. Abdomen: Bowel sounds present. Soft, nondistended, nontender. No hepatospleno megaly or masses. Extremities: Right shoulder bandage is clean, dry, and intact. No lower extremity edema, no cyanosis or clubbing. Const: Vital Signs, click to edit/add: Vital Signs - 24 hr 11/22/23 10:32 11/22/23 10:45 11/22/23 13:54 Temperature 97.1 F L Pulse Rate 54 L 53 L 80 Pulse Rate [Right Pulse Oximeter] Respiratory Rate 16 16 19 Blood Pressure 139/65 111/66 101/83 Blood Pressure [Le ft Arm] Pulse Oximetry 94 94 93 Oxygen Delivery Me thod Nasal Cannula Nasal Cannula Nasal Cannula Oxygen Flow Rate 2 2 4 11/22/23 14:05 11/22/23 14:10 11/22/23 14:15 Temperature Pulse Rate 67 63 61 Pulse Rate [Right Pulse Oximeter] Respiratory Rate 18 20 19 Blood Pressure 119/82 116/71 129/72 Blood Pressure [Le ft Arm] Pulse Oximetry 91 92 91 Oxygen Delivery Me thod Oxygen Flow Rate 3 2 11/22/23 14:20 11/22/23 14:33 11/22/23 14:37 Temperature 97.5 F L 95.9 F L 95.9 F L Pulse Rate 60 61 Pulse Rate [Right Pulse Oximeter] 61 Respiratory Rate 20 18 18 Blood Pressure 133/72 122/78 Blood Pressure [Le ft Arm] 122/78 Pulse Oximetry 92 93 93 Oxygen Delivery Me thod Nasal Cannula Room Air Oxygen Flow Rate 3 11/22/23 14:40 11/22/23 14:45 11/22/23 14:56 Temperature 95.9 F L 95.9 F L 95.9 F L Pulse Rate 60 60 59 L Pulse Rate [Right Pulse Oximeter] Respiratory Rate 18 18 16 Blood Pressure 98/66 130/79 148/92 H Blood Pressure [Le ft Arm] Pulse Oximetry 93 92 92 Oxygen Delivery Me thod Room Air Room Air Room Air Oxygen Flow Rate 3 3 3 11/22/23 15:00 11/22/23 15:09 11/22/23 15:15 Temperature 96.4 F L 96.8 F L Pulse Rate 63 76 68 Pulse Rate [Right Pulse Oximeter] Respiratory Rate 16 16 Blood Pressure 113/83 113/83 Blood Pressure [Le ft Arm] Pulse Oximetry 89 91 Oxygen Delivery Me thod Room Air Room Air Oxygen Flow Rate 3 4 11/22/23 15:30 11/22/23 15:45 11/22/23 16:00 Temperature 96.8 F L 97.9 F 97.9 F Pulse Rate 68 64 64 Pulse Rate [Right Pulse Oximeter] Respiratory Rate 16 18 18 Blood Pressure 138/80 133/83 137/79 Blood Pressure [Le ft Arm] Pulse Oximetry 91 93 93 Oxygen Delivery Me thod Room Air Room Air Room Air Oxygen Flow Rate 4 4 4 11/22/23 16:30 11/22/23 17:30 11/22/23 18:30 Temperature 97.9 F 97.9 F 97.8 F Pulse Rate 72 67 87 Pulse Rate [Right Pulse Oximeter] Respiratory Rate 18 18 18 Blood Pressure 129/85 132/78 135/117 H Blood Pressure [Le ft Arm] Pulse Oximetry 93 92 90 Oxygen Delivery Me thod Room Air Room Air Room Air Oxygen Flow Rate 3 3 3 11/22/23 19:27 11/22/23 20:04 11/22/23 20:36 Temperature 97.8 F 97.8 F 97.9 F Pulse Rate 91 86 Pulse Rate [Right Pulse Oximeter] Respiratory Rate 18 18 Blood Pressure 114/76 114/71 Blood Pressure [Le ft Arm] Pulse Oximetry 91 92 Oxygen Delivery Me thod Nasal Cannula Nasal Cannula Oxygen Flow Rate 3 3 11/22/23 21:57 11/22/23 22:14 11/22/23 22:37 Temperature 98.1 F 98.1 F Pulse Rate 87 Pulse Rate [Right Pulse Oximeter] 84 Respiratory Rate 18 Blood Pressure Blood Pressure [Le ft Arm] 144/81 H Pulse Oximetry 91 Oxygen Delivery Me thod Nasal Cannula Oxygen Flow Rate 3 11/22/23 22:45 11/23/23 02:00 11/23/23 04:06 Temperature 98.2 F 98.2 F Pulse Rate Pulse Rate [Right Pulse Oximeter] 88 Respiratory Rate 18 18 Blood Pressure Blood Pressure [Le ft Arm] 130/97 H Pulse Oximetry 91 Oxygen Delivery Me thod Nasal Cannula Oxygen Flow Rate 3 11/23/23 07:40 11/23/23 08:33 Temperature 98.0 F Pulse Rate 69 Pulse Rate [Right Pulse Oximeter] 88 Respiratory Rate 20 Blood Pressure Blood Pressure [Le ft Arm] Pulse Oximetry 95 Oxygen Delivery Me thod Nasal Cannula Oxygen Flow Rate 2 Labs Labs: Laboratory Results - last 24 hr 11/22/23 11/22/23 11/23/23 14:50 17:22 06:10 WBC 13.33 H RBC 4.22 Hgb 13.0 Hct 39.4 MCV 93 MCH 31 MCHC 33 Plt Count 251 Sodium 141 140 Potassium 4.1 3.7 Chloride 110 Carbon Dioxide 27 Anion Gap 4 L BUN 20 16 Creatinine 0.6 0.5 Estimated Creat Clear 42.62 42.62 Estimated GFR 94 98 Glucose 128 H Calcium 8.8 Total Bilirubin 0.5 AST 34 ALT 34 Alkaline Phosphatase 92 Troponin I < 0.01 L < 0.01 L Total Protein 6.8 Albumin 3.9 11/23/23 9:38 a.m. Troponin I < 0.01. Study: XRay-Chest PORTABLE-11/23/2023 12:06:42 AM Ordering Physician: CA Final Report: INDICATION: Chest heaviness, recent shoulder surgery. TECHNIQUE: Chest 1 view. COMPARISON: None. FINDINGS: Moderate elevation of the right hemidiaphragm. Low lung volumes. Bibasilar atelectasis. No dense consolidation, pleural effusion, or pneumothorax. The cardiac silhouette appears enlarged but may be exaggerated by portable technique. Normal pulmonary vascularity. Lucency under the left hemidiaphragm is likely a bowel loop. Right reverse total shoulder arthroplasty. Soft tissue gas about the right shoulder is likely postoperative in nature. IMPRESSION: 1. Low lung volumes with bibasilar atelectasis and elevated right hemidiaphragm. 2. The cardiac silhouette appears enlarged but may be exaggerated by portable technique. 3. Postoperative changes of the right shoulder. Dictated by Tessy Fernandez MD @ 11/23/2023 1:01:39 AM (Electronic Signature)
[2023-11-23 10:06] VITALS: BP 151/103
[2023-11-23 10:13] LABS: Troponin I* < 0.01 ng/mL (0.01-0.04)
--- NOTE | 2023-11-23 11:38 | PC.NURSE ---
Discharge - Pt alert, oriented, cooperative. Up with standby assistance, continent of bowel and bladder. Pt tolerating RA upon d/c with saturation maintaining 92% and above. Pt reported pain in surgical site as 8, managed with medication in SEP. Pt verbalized tolerating pain with intervention. Dressing CDI, VSS, afebrile. Ice pack on site. IV removed with catheter intact. Discharge instructions given with verbalized understanding. Pt d/c'd to home with via wheelchair at approximately 1115.
== END 2023-11-23 11:15 | disposition home or self-care (01) ==
LOC: OR 08:35 → MEDSURG 08:37
PROVIDERS: Family Medicine; PCP Family Medicine; Visit Provider Orthopaedic Surgery Sports Medicine
PROC: 0RRJ0JZ Replacement of Right Shoulder Joint with Synthetic Substitute, Open Approach (ICD-10-PCS; CPT 23472; principal; 2023-11-22 10:15)
DX: M19.011 Primary osteoarthritis, right shoulder (principal); M75.21 Bicipital tendinitis, right shoulder; G89.18 Other acute postprocedural pain; R07.9 Chest pain, unspecified; I25.10 Atherosclerotic heart disease of native coronary artery without angina pectoris; F41.9 Anxiety disorder, unspecified; I10 Essential (primary) hypertension; E78.5 Hyperlipidemia, unspecified; E66.01 Morbid (severe) obesity due to excess calories; M85.80 Other specified disorders of bone density and structure, unspecified site; Z85.3 Personal history of malignant neoplasm of breast; Z68.39 Body mass index [BMI] 39.0-39.9, adult
CPT/HCPCS: 23472; 23430; 01638; 36415; 64415; 71045; 73030; 76942; 80053; 82565; 84132; 84295; 84484; 84520; 85027; 93005; 97116; 97161; 97165; 97535; 99100; A9270; C1713; C1776; J0690; J1100; J2250; J2270; J2371; J2704; J2710; J2795; J3010; J7120; L3670

== ENCOUNTER 2024-03-08 09:45 | Outpatient (RCR) | payer MEDICARE, BC, SELFPAY ==
--- NOTE | 2023-11-10 14:45 | OT.OPOE ---
OT Outpatient Ortho Eval OT Outpatient Ortho Eval* Start: 11/10/23 12:22 Freq: Status: Active Protocol: Document 11/10/23 12:22 KEVEN (Rec: 11/10/23 14:35 KEVEN [id number]) E-signed By Margarita Enriquez, OTR/L, CLT OT OP Ortho Eval Details Complexity Complexity Low Insurance Information Insurance Information Medicare B Outpatient History/Precautions Current Condition/Medical Diagnosis Referring Provider Dr. Velásquez Treatment Diagnosis Pain in R shoulder, M25.511 Date of Onset Chronic Other Precautions Patient is having a R RSA (DOS : 11/22/23) by Dr. Velásquez Medical Dx: M19.011 Primary osteoarthritis, Right Shoulder Other Conditions PMH includes but is not limited to: Osteoarthritis of right shoulder (Acute) Severe, [id number] with erosion M19.011 - Primary osteoarthritis, right shoulder (ICD-10) Osteoarthritis of left shoulder (Acute) Severe, [id number] M19.012 - Primary osteoarthritis, left shoulder (ICD-10) Status post total knee replacement, right (Acute ) Right total knee arthroplasty (08/31/2022, Dr. Velásquez) Z96.651 - Presence of right artificial knee joint (ICD-10) Coronary artery disease ( Chronic) Angiogram 06/2010 showed 40% left anterior descending lesion and the rest of the coronary arteries were normal I25.10 - Atherosclerotic heart disease of [place] coronary artery without angina pectoris (ICD-10) Hypertension (Chronic) I10 - Essential (primary) hypertension (ICD-10) Hyperlipidemia (Chronic) 07/06/2010 TC 211, TG 101, HDL 48, LDL 143 goal LDL <70 statin started 06/20 E78.5 - Hyperlipidemia, unspecified (ICD-10) Respiratory disorder (Acute) J98.9 - Respiratory disorder, unspecified (ICD-10) Menarche (Acute) Anxiety disorder (Acute) F41.9 - Anxiety disorder, unspecified (ICD-10) Breast cancer (Acute) C50.919 - Malignant neoplasm of unspecified site of unspecified female breast (ICD -10) Osteoarthritis of left knee ( Chronic) Severe, [id number] M17.12 - Unilateral primary osteoarthritis, left knee (ICD -10) Medical/Functional History Medical History Reviewed Yes Prior Level of Function/Mobility Medication List acetaminophen 500 - 1,000 mg ( 1 - 2 x 500 mg) PO Q6H PRN MDD 4000mg amlodipine 5 mg PO DAILY atenolol 25 mg PO DAILY atorvastatin 20 mg PO DAILY calcium carbonate-vitamin D3 500 mg-3.125 mcg (125 unit) 2 tabs PO DAILY fluticasone propionate 50 mcg/ actuation 1 spray intranasal BID glucosamine sulfate 1,000 mg PO DAILY hydrochlorothiazide 12.5 mg PO DAILY nitroglycerin 0.4 mg sublingual Q5M PRN omega 2-fks-qwn-fish oil 100- 160-1,000 mg (Fish Oil) caps PO sertraline 50 mg PO DAILY triamcinolone acetonide 0.1% 1 applic topical TID PRN Social History Employment Status Retired Current Occupation Lives with spouse Hobbies travel Ortho Subjective Subjective Subjective Patient lives in [place] with her spouse and is planning on a R RSA on 11/22/23 . She was told by the surgeon that she will spend 1 night in the hospital. Patient has 2 steps to enter the home with railing on the R side. Asked patient to practice into the home w/o using the R railing, and if she is unable, she may need the support of her spouse on the L side of her, or she could use the SPC. If these options don't work the recommendation would be to add a railing to the Left side to enter the home. Other DME patient already has: Shower chair with arms/back support ( walk in shower), FWW, SPC, adjustable sleep number bed, handicap height toilets ( patient had a TKA and is familiar with DME). In the living room patient sits in a power recliner chair (button on the right side) Pain Assessment Pain Present Pain Present Pain Reported Location Right Shoulder Description Pressure,Throbbing,Chronic Intensity 10 Goniometric Comments Goniometric Comments Goniometric Comments R UE Abduction: 68 degrees Forward flexion: 85 degrees Extension: 45 degrees Internal Rotation 42 degrees External Rotation 51 degrees R UE Pronation/Supination- 90/80 degrees R Elbow Extension/Flexion 5-121 degrees Hand Pinch/Concrete Pump Operator Helper Strength Hand Right Concrete Pump Operator Helper Strength Position 1 (lbs) 1 Concrete Pump Operator Helper Strength Position 2 (lbs) 3 Lateral Pinch Strength (lbs) 10 Three Point Pinch (lbs) 10 Left Concrete Pump Operator Helper Strength Position 1 (lbs) 40 Concrete Pump Operator Helper Strength Position 2 (lbs) 25 Lateral Pinch Strength (lbs) 4 Three Point Pinch (lbs) 6 OT Problems Problems Problems Decreased Strength,Decreased Range of Motion,Pain,Lifting, Gripping Other Problems Opening Containers,Dressing, Fasteners,Sleeping Patient Potential Excellent Assessment Assessment Assessment 73-year-old R hand dominant female patient is undergoing a planned R side RSA with Dr. Velásquez on 11/22/23. Patient had Depo-Medrol 40 mg/mL suspension for injections to both her L and R shoulders on 08/20/23 and reported only 1 week of pain relief. Patient is hoping that the surgery will increase her AROM of the R UE (dominant UE), decrease her pain and improve her quality of life. Patient was an active listener, asked great questions and was provided with a folder of information Occupational Therapy Treatment Plan - OP Potential Rehabilitation Potential Excellent Barriers Barriers to goal attainment None noted, patient has a supportive spouse at home and appropriate DME in place Set Goals Goals Set with Patient Yes Goals Goals 1. Patient will be Indep with HEP 2. Patient will understand precautions and restrictions for R RSA, as demonstrated by verbalizing her precautions accurately. 3. Patient will angelito/doff sling on the R UE accurately. Target Date 1 visit Treatment Plan Treatment Plan Evaluation,Therapeutic Exercise Expected Frequency 1x Week Expected Duration 2-4 Weeks Home Program Home Program Home Program Initiated Home Program Specifics Supported Elbow AROM Wrist Circles AROM Seated Straight Fist AROM Finger Spreading Do not lift or carry anything with your operated arm that weighs more than the weight of a coffee cup. When lying down, support your upper arm with a pillow to keep it from moving backward. If you?ve had a total shoulder replacement, there are some positions your surgeon may recommend you avoid during your recovery to protect your shoulder as it heals. It is important to follow these precautions and any other instructions your health care team gives you to allow your shoulder to heal properly. 1. Make sure to wear your sling as directed by your healthcare provider. Generally, it?s a good idea to keep your sling on at all times, except during self-care or when performing your home exercises. Always wear your sling while walking, standing, sleeping, or when you?re outside or in crowds. Wearing your sling around others alerts those around you to be cautious around your operated arm. It also helps avoid someone accidentally bumping or striking your arm. If you?re sitting or lying down at home, you may be allowed to take off your sling . Just be careful to keep your elbow tucked in to your side whenever you?re out of your sling. 2. Do not lift or carry anything with your operated arm that weighs more than one pound. This is about the weight of a coffee cup. Eating , drinking, and using a remote control are okay. 3. Do not bear weight through your operated arm, such as when pushing up from a chair. If you use a walker, it?s best to use a cane or hemiwalker while your shoulder recovers. These devices can be used with your non-operative arm. 4. Do not actively use your surgical shoulder. Avoid pushing, pulling, or lifting with that arm, such as to open or close a door. Avoid reaching overhead, to the side, behind your back, or across your chest. Also take care to avoid fast or jerking movements. You should not allow your elbow to move backwards, past your ribs. When lying down, support your upper arm with a pillow to keep it from moving backward. To get out of bed, roll onto your ?good side.? Then use your non-operative arm to push yourself up into a sitting position. 5. At first, you may find it more comfortable to sleep in a recliner. However, you may also sleep in a bed with a folded towel or sheet propped up behind your shoulder and upper arm for support. 6. Do not let your forearm or hand move out to the side. Gentle use of your elbow, wrist, and hand on your operated arm is okay as long as your arm is at your side and you keep your elbow in front of you. Recertification Information Recertification Information Initial Certification Date 11/10/23 Recertification Due Date 11/12/23 Click To Default 'Per treatment plan' Per treatment plan Continued Plan of Care and Interventions Per treatment plan Provider Signature Shows Agreement With POC & Medical Necessity Physician Comment/Change Comment or Changes Physician NPI Number #
--- NOTE | 2023-12-08 12:55 | PT.OPEX ---
PT [place] Outpatient Eval PT [facility] Outpatient Eval Start: 12/08/23 09:08 Freq: Status: Active Protocol: Document 12/08/23 09:45 RAJENDRA (Rec: 12/08/23 12:55 RAJENDRA [id number]) E-signed By Stacey Amos PT Physical Therapy Outpatient Evaluation Insurance Information Recert Due Date 03/06/24 Insurance Name Medicare B,Blue Cross/[employer] Medical Diagnosis RIGHT SHOULDER OA/RTC TEAR S/P rTSA 11/22/23 Treating Diagnosis RIGHT SHOULDER PAIN RIGHT SHOULDER WEAKNESS Referring MD SCHUMACHER Subjective Subjective PATIENT ARRIVES WITH REPORTS OF DIFFICULTY SLEEPING BUT FAIR MGMT OF PAIN. SHE IS NOT TAKING HER NARCOTICS BUT RATHER USING TYLENOL AND OCCASIONAL USE OF ICE. SHE REPORTS THAT HER SPOUSE HIS ASSISTING WITH HER BATHING, DRESSING, AND SLING MGMT. Pain Comments 10/19 Date of Surgery (If applicable) 11/22/23 Current Work Status Retired Preferred Name [employer] Precautions Treatment Precautions/Contraindications -NO LIFTING -NO REACHING -WEAR SLING UNLESS BATHING/ HYGEINE OR PERFORMING YOUR EXERCISE -NO EXCESSIVE MVMT OF SHOULDER , NO RESISTED IR -WEAR SLING UNTIL 6 WEEKS THEN WEAN SLOWLY Weight Bearing Status Non-Weight Bearing Objective Other/Pertinent Objective 12/08/23: PROM SUPINE FLEX 90/ ABD 78/ER @45 DEGREES ABD/ SCAPTION 10 Assessment Assessment/Impression PATIENT IS A [address] SCHUMACHER REFERRED TO PHYSICAL THERAPY FOLLOWING RIGHT SHOULDER rTSA ON 11/22/23 TO EVAL AND TX. PMHX INCLUDES BUT NOT LIMITED TO R/L SHOULDER OA, RIGHT KNEE TKA 2022 ANXIETY AND DEPRESSION, H /O BREAST CANCER W/BILATERAL MASTECTOMY 2004, OSTEOPENIA, HTN, HLD, H/O R ANKLE ORIF 2013, AND CAD. PATIENT IS HERE POD 16 WEARING HER SLING PROPERLY. WE DISCUSSED THE PRECAUTIONS AND RESTRICTIONS OF rTSA ALONG WITH THE ANATOMY AND PATHOPHYSIOLOGY. SHE IS EDUCATED ON SYMPTOM MGMT WELL HER CURRENT HEP. SHE REQUIRES DEMONSTRATION AND FREQ CUEING TO DECREASE THE AMOUNT OF MM USE WHEN PERFORMING HER PENDULUMS. HER PROM MEASURES 90/78/10 AND RATES HER PAIN 5-6/10. SHE CURRENTLY RECEIVES ASSISTANCE FROM HER SPOUSE WITH BATHING AND DRESSING AND DENIES ANY CHALLENGES WITH DRESSING AND HYGIENE CURRENTLY. SHE IS APPROPRIATE FOR SKILLED PHYSICAL THERAPY FOR ROM, STRENGTHENING, PROPRIOCEPTION AND SYMPTOM MGMT FOLLING HER rTSA PATIENT VERBALIZE UNDERSTANDING OF ALL SKILLED INSTRUCTION AND IS IN AGREEMENT W/POC AND FREQ. 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 PATIENT WILL DEMONSTRATE GOOD MGMT OF HIS PAIN AND EDEMA WITH REPORTED PAIN </3/ 10 DURING THEIR HOME PROGRAM AND WITH THE PROGRESSION OF THEIR PHYSICAL THERAPY. 2. PATIENT WILL RETURN TO INDEPENDENCE WITH ADL'S, RETURN TO DRIVING, AND MAINTAIN PRECAUTIONS/ RESTRICTIONS 3. PATIENT WILL DEMONSTRATE PROM TO WFL TO PREPARE FOR RETURN TO FUNCTIONAL USE OF RIGHT UE; LTG WITHIN 8-12 WEEKS: 1. PATIENT WILL DEMONSTRATE AROM OF RIGHT SHOULDER TO WFL TO RETURN TO FULL FUNCTIONAL FOR ADL'S, IADL'S AND PEER CENTERED ACTIVITIES. 2. PATIENT WILL DEMONSTRATE FUNCTIONAL STRENGTH TO RETURN TO REACHING OVERHEAD, ANTERIORLY AND OUT TO SIDE NEEDED DURING PATIENT CENTERED ACTIVITIES. 3. PATIENT WILL DEMONSTRATE INDEPENDENCE WITH THEIR HEP TO PROGRESS TWD THE ABOVE MENTIONED GOALS, CONTINUED MGMT OF SYMPTOMS, AND ONGOING IMPROVEMENT WITH ROM, STRENGTH AND FUNCTION FOR A FULL RETURN TO ALL ACTIVITIES Coordination/Communication With Referral Source Treatment Plan/Direct Interventions Electrical Stimulation,Ice/ Cold/Vasopneumatic,Joint Mobilization,Manual Therapy, Neuromuscular Re-ed,Self-Care/ Home Management,Therapeutic Activities,Therapeutic Exercises Frequency/Duration 1-2X/WK FOR 10-12 WKS Patient Will Be Discharged From Therapy Completion of LTG(s), Independently Progressing Evaluation Billing Untimed Code Treatment Minutes 15 PT Eval No Charge No Complexity Moderate Certification Information Initial Certification Date 12/08/23 Ending Certification Date 03/06/24 Provider Signature Shows Agreement With POC & Medical Necessity Physician Signature & Date Requested Please Sign/Date Here Physician Comment/Change : Physician NPI Number #
== END 2024-03-22 09:19 | disposition home or self-care (01) ==
PROVIDERS: PCP Family Medicine; Visit Provider Orthopaedic Surgery Sports Medicine
DX: M19.011 Primary osteoarthritis, right shoulder (principal); Z96.611 Presence of right artificial shoulder joint; Z51.89 Encounter for other specified aftercare
CPT/HCPCS: 97110; 97140; 97162; 97165; X5282

== ENCOUNTER 2024-04-12 08:31 | Day surgery (SDC) | payer MEDICARE, BC, SELFPAY ==
[2024-04-12] VITALS (24 sets, daily range): BP systolic 99–152; BP diastolic 64–94; PULSE 52–80; RESP 14–18; TEMP 35.8–36.8; O2SAT 88–99; BMI 39.6
--- OUTSIDE RECORDS SUMMARY | 2024-04-12 08:35 | XMS_ITS | Clinical Summary ---
Author Organization [employer] [facility] [facility] Address [place], [place] [address] Care Team Providers Care Plisse Machine Operator Helper Name Role Phone Laina, Silvia Zhu MD Primary Care Provider Vkitor Wellington MD Unavailable Unavailabl e Ollie Swift MD Unavailable Unavail able SaleemClay reno Unavailable [phone] Allergies No known active allergies Medications Medication Sig Dispensed Refills Start Date End Date Status CALCIUM CARBONATE/VITAMIN D3 (CALCIUM 600 + D ORAL) Take 2 Tabs by mouth once daily. 07/05/2010 Active glucosamine sulfate (GLUCOSAMINE) 500 mg tab Take 1 tablet by mouth 3 times daily. 0 10/22/2014 Active fluticasone (50 mcg per actuation) nasal solution (FLONASE)Indications :Rhinitis, unspecified type Inhale 1 Rinard into both nostrils 2 times daily. 1 Bottle 02/06/2020 Active triamcinolone (ARISTOCORT; KENALOG) 0.1 % creamIndications:Ski n rash Apply topically to affected area(s) three times daily. 60 g 1 03/09/2022 Active Sngkf-0-ZSD-EPA-Fish Oil 1,000 mg (120 mg-180 mg) cap Take 1 Capsule (1,000 mg) by mouth. 0 03/10/2023 Active nitroglycerin (NITROSTAT) 0.4 mg sublingual tabletIndications:Co ronary artery disease due to lipid rich plaque Place 1 Tablet (0.4 mg) under the tongue every 5 minutes if needed for Chest Pain (Maximum of 3 doses.). 10 Tablet 11/26/2023 Active amLODIPine (NORVASC) 5 mg tabletIndications:Es sential hypertension Take 1 Tablet (5 mg) by mouth once daily. 90 Tablet 3 03/15/2024 Active atenoloL (TENORMIN) 25 mg tabletIndications:Es sential hypertension Take 1 Tablet (25 mg) by mouth once daily. 90 Tablet 3 03/15/2024 Active atorvastatin (LIPITOR) 20 mg tabletIndications:Hy perlipidemia, unspecified hyperlipidemia type Take 1 Tablet (20 mg) by mouth once daily. 90 Tablet 3 03/15/2024 Active hydroCHLOROthiazide 12.5 mg capsuleIndications:E ssential hypertension Take 1 Capsule (12.5 mg) by mouth once daily. 90 Capsule 3 03/15/2024 Active sertraline (ZOLOFT) 50 mg tabletIndications:Dy sthymic disorder Take 1 Tablet (50 mg) by mouth once daily. 90 Tablet 3 03/15/2024 Active amLODIPine (NORVASC) 5 mg tabletIndications:Es sential hypertension Take 1 Tablet (5 mg) by mouth once daily. 90 Tablet 3 03/10/2023 4 Discontinue d(Reorder (E-cancel not sent)) atenoloL (TENORMIN) 25 mg tabletIndications:Es sential hypertension Take 1 Tablet (25 mg) by mouth once daily. 90 Tablet 3 03/10/2023 4 Discontinue d(Reorder (E-cancel not sent)) atorvastatin (LIPITOR) 20 mg tabletIndications:Hy perlipidemia, unspecified hyperlipidemia type Take 1 Tablet (20 mg) by mouth once daily. 90 Tablet 3 03/10/2023 4 Discontinue d(Reorder (E-cancel not sent)) hydroCHLOROthiazide 12.5 mg capsuleIndications:E ssential hypertension Take 1 Capsule (12.5 mg) by mouth once daily. 90 Capsule 3 03/10/2023 4 Discontinue d(Reorder (E-cancel not sent)) sertraline (ZOLOFT) 50 mg tabletIndications:Dy sthymic disorder Take 1 Tablet (50 mg) by mouth once daily. 90 Tablet 3 03/10/2023 4 Discontinue d(Reorder (E-cancel not sent)) oxyCODONE (ROXICODONE) 5 mg immediate release tablet Take 5 mg by mouth every 4 hours if needed for Pain. 11/23/2023 4 Discontinue d(*Patient states no longer taking) aspirin (ECOTRIN) 81 mg enteric coated tablet Take 81 mg by mouth once daily with a meal. 4 Discontinue d(*Patient states no longer taking) Active Problems Problem Noted Date Diagnosed Date Obesity, morbid 02/25/2022 Osteopenia 09/05/2013 Varicose veins 10/21/2012 Personal history of colonic polyps 10/24/2010 Overview (10/24/2010): Colonoscopy 10/2010 diverticulosis repeat in 5 years Hyperlipidemia 07/06/2010 Overview (07/07/2010): - 07/06/10: TC 211, TG 101, HDL 48, LDL 143 - goal LDL < 70 - statin started 06/20 Other chest pain 07/05/2010 Overview (07/15/2010): Angiogram 06/2010 showed 40% left anterior descending lesion and the rest of the coronary arteries were normal. Allergic rhinitis, cause unspecified 05/30/2007 Dysthymic disorder 05/30/2007 Unspecified essential hypertension 05/30/2007 Benign neoplasm of colon 05/30/2007 Overview (05/21/2016): Colonoscopy 10/2010 diverticulosis repeat in 5 years Colonoscopy 05/2016 diverticulosis repeat in 5 years Resolved Problems Problem Noted Date Diagnosed Date Resolved Date Malignant neoplasm of breast (female), unspecified site 11/25/2006 02/25/2022 Overview (05/30/2007): Intraductal diagnosed in 2004. Had bilateral matectomy in 11/2004; in remission. Encounters Date Type Department Care Team Description 04/05/2024 7:54 AM CDT - 04/05/2024 11:59 PM CDT Hospital Encounter [address] [address] Luis Enrique Doss, Other chest pain; Atherosclerosis of coronary artery, unspecified vessel or lesion type, unspecified whether angina present, unspecified whether three affiliated or transplanted heart; TELLEZ (dyspnea on exertion) 04/04/2024 Travel 04/04/2024 Telephone [facility] [address] [place] [address] Fatou Rosario 03/15/2024 8:50 AM CDT Office Visit [facility] [address] [place] [address] Silvia Marina MD Medicare ANNUAL (subsequent) Visit (73 yr/Spot on left cheek would like looked at/Wondering if she can also do Pre-op. Knee replacement 04/12/24 [facility] ); Immunization/Injecti on 03/15/2024 Travel 03/03/2024 Telephone [facility] [address] [place] [address] Silvia Marina MD Questions from Last 3 Months Immunizations Name Administration Dates Next Due AMB INFLUENZA IIV3 (AGE 65+ YRS) PF (Flu Clinic Only) 04/15/2018,04/17/2017 AMB Influenza, IIV3 (Age >=3 years)(Flu Clinic Only) 04/20/2013,04/08/2012,05/18/2008 AMB Influenza, IIV4 PF (=>6 mos Flulaval,Fluzone Fluarix)(Flu Clinic Only) 04/14/2019 Amb Influenza, Inact (High-d ose) (Flu Clinic Only) 04/11/2016 Amb Influenza, Inactivated A IIV4 (Age 65+ Years) Preserv Free 04/04/2020 COVID-19 vaccine ([employer] NT[employer]ilos 30mcg/0.3mL) PF, MDV 09/17/2020,08/27/2020 Hepatitis A (Adult) 12/07/1997,05/04/1997,1996 Influenza A (H1N1), Inactivated 06/17/2009 Influenza A (H1N1), Inactiva anthony (Age >=3 Years) 06/17/2009 Influenza, High-dose Inactivated 04/11/2016,100 01/2015 Influenza, High-dose Quadriv alent Inactivated 03/30/2022 Influenza, IIV3 (Age 6-35 mos) 04/03/2011,2009,06/20/2009 Influenza, IIV3 (Age >=3 years) 04/20/20 13,04/08/2012,04/03/2011,2009,06/20/2009,05/18/2008,05/06/2007,1 07/24/2005,05/19/2005,04/27/2003 Influenza, IIV4 03/26/2014 Influenza, Inactivated AIIV4 (Age 65+ Years) Preserv Free 04/14/2021 Influenza, Inactivated IIV3 (Age 65+ Years) Preserv Free 03/15/2024 Pneumococcal Poly,23-Valent (Pneumovax) 10/26/2016,08/28/2011 Pneumococcal conj 13-Valent (Prevnar 13) 10/22/2014 Td (Age >=7 Years) 04/20/2005 Td, Preservative Free (age > = 7 Years) 04/20/2005 Tdap 03/20/2022,08/28/2011 Yellow Fever 04/11/2010 Zoster (Shingrix-RZV, recombinant) 02/27/2019, Zoster (Zostavax-ZVL, live) 08/28/2011 Family History Medical History Relation Name Comments Blood Disease Father of Leukem ia at 89 Psychiatric illness Father depressi on Heart Disease Mother of SC at 77 Relation Name Status Comments Father [...] Answer Date Recorded PHQ-2 TOTAL SCORE 0 03/15/2024 Social Connections Answer Date Recorded Frequency of Communication with Friends and Fami ly 0 03/15/2024 Financial Resource Strain Answer Date R ecorded Difficulty of Paying Living Expenses 3 03/15/2024 Difficulty of Paying Living Expenses Not on file 03/15/2024 Food Insecurity Answer Date Recorded Worried About Running Out of Food in the Last Ye ar 1 03/15/2024 Transportation Needs Answer Date Record ed Lack of Transportation (Medical) 1 03/15/2024 Housing Stability Answer Date Recorded Unable to Pay for Housing in the Last Year 1 03/15/2024 Sex and Gender Information Value Date Recorded Sex Assigned at Not on file Gender Identity Not on file Sexual Orientation Not on file Obstetrics History Last Filed Vital Signs Vital Sign Reading Time Taken Comments Blood Pressure 133/81 03/15/2024 8:56 AM CDT Pulse 62 03/15/2024 8:56 AM CDT Temperature 36.9 ??C (98.4 ??F) 02/15/2019 7:42 AM CD T Respiratory Rate 18 02/15/2019 8:30 AM CDT Oxygen Saturation 95% 03/15/2024 8:56 AM CDT Inhaled Oxygen Concentration - - Weight 104.8 kg (231 lb) 03/15/2024 8:56 AM CDT Height 162.6 cm (5' 4) 03/15/2024 8:56 AM CDT Body Mass Index 39.65 03/15/2024 8:56 AM CDT Plan of Treatment Health Maintenance Due Date Last Done Comments Colonoscopy through age 75 05/21/202105/21, 05/21/2016, 05/21/2016, Additional history exists COVID-19 vaccine series ( season) 2024 04/12/2023, 03/30/2022, 10/20/2021, Additional history exists BMI (ht and wt on same day) for age 18+ 03/15/2025 03/15/2024, 11/08/2023, 03/10/2023, Additional history exists Depression screening for age 12+ 03/15/2025 03/15/2024, 03/10/2023, 03/09/2022, Additional history exists Medicare Wellness for age 65+ 03/16/2025, 03/10/2023, 03/09/2022, Additional history exists Lipids for age 45-75 03/15/2029 03/15/2024, 03/10/2023, 03/09/2022, Additional history exists Tetanus booster 03/20/2032 03/20/2022, 08/12, 04/20/2005, Additional history exists Pneumococcal series for age 65+ Completed 10/26/2016, 10/22/2014, 08/28/2011 Zoster (shingles) series for age 50+ Completed 02/27/2019, 12/28/2018, 08/28/2011 Hepatitis C screening for ag e 18-79 Completed 02/06/2020 DEXA/DXA scan for age 65+ Completed 2020, 11/08/2015, 09/05/2013, Additional history exists Tdap Completed 03/20/2022, 08/28/2011 Influenza for age 65+ Completed 03/15/2024 , 03/30/2022, 04/14/2021, Additional history exists Procedures Procedure Name Priority Date/Time Associated Diagnosis Comments NM CARDIAC MPI STRESS TEST Routine 04/05/2024 10:30 AM CDT Other chest pain Atherosclerosis of coronary artery, unspecified vessel or lesion type, unspecified whether angina present, unspecified whether three affiliated or transplanted heart TELLEZ (dyspnea on exertion) SCAN-STRESS TEST 04/05/2024 12:0 0 AM CDT LIPID PANEL W REFLEX MEASURED LDL Routine 03/15/2024 10:04 AM CDT Hyperlipidemia, unspecified hyperlipidemia type HEMOGLOBIN Routine 03/15/2024 10:04 AM CDT Preop examination BASIC METABOLIC PANEL Routine 03/15/2024 10:04 AM CDT Essential hypertension XR DXA BONE DENSITY 2 SITES AXIAL Routine 03/05/2021 8:50 AM CDT Menopause ANTI HCV Routine 02/06/2020 11:55 AM CDT Need for hepatitis C screening test COLONOSCOPY 05/21/2016 8:01 AM FOUNDATION ENGINEER from Last 3 Months or Most Recently Relevant to Health Maintenance Results * NM CARDIAC MPI STRESS TEST (04/05/2024 10:30 AM CDT) Anatomical Region Laterality Modality HEART Nuclear Medicine , Other 04/05/2024 8:15 AM CDT Narrative 04/05/2024 4:05 PM CDT ? Toll -free: [phone] ?[employer] ?MYOCARDIAL PERFUSION IMAGING REPORT REST/STRESS SINGLE ISOTOPE GATED SPECT IMAGING USING GD. Patient Name: ?? JASMYN BENSON ?Gender: ? F ? Height: ? 64 in Accession #: ?[id number] ?Weight: ? 231 lb Study Date: ? 04/05/2024 8:15:48 AM ? BSA: ?2.08 m? ? ? : ?1950 73 years ? BMI: ?39.65 kg/m? ? ? Ord. Prov.: ? LUIS ENRIQUE DOSS ? Monitoring Prov.: Leatha Chung Performing Site [facility] - ?[facility] Clinical History: ? Chest pain. No known coronary artery disease. Cardiac Risk Factors: Hypertension, hypercholesterolemia and remote tobacco use. Other Symptomatology: Bilateral breast implant. Cardiac History: ?Angiogram 2010. Beta serjio/calcium channel serjio/nitrate taken today: Yes. Caffeine/methylxanthine taken within 12 hrs: ?No. Chest pain/discomfort at baseline: ?No. IMPRESSION 1. Adequate pharmacologic stress test with regadenoson and low level exercise. 2. The pharmacologic stress ECG was negative for ischemia. 3. Myocardial perfusion was normal. 4. Left ventricular cavity size was normal (resting EDV 87 ml). 5. Overall left ventricular systolic function was normal without wall motion abnormalities. The post stress LVEF was visually estimated to be 65%. 6. There were no prior studies available for comparison. STRESS MPI PROCEDURE The patient was studied utilizing a same day rest/stress protocol. Myocardial perfusion imaging was performed at rest, 21 minutes following the intravenous injection of 10.8 mCi of 99mTc sestamibi. 30 seconds after the 15 second IV regadenoson injection, the patient was injected via IV with 37.2 mCi of 99mTc sestamibi. Gated post-stress tomographic imaging was performed 31 minutes after stress. After image acquisition was completed, data was reconstructed in short, horizontal long and vertical long axis views and tomographic slices were generated. - Pharmacologic stress testing was performed with an IV regadenoson dose of 0.4 mg. - Low level exercise consisting of walking on treadmill at 1.2 mph with a 1.0% grade was performed for 1 minute prior to, during, and 2 minutes after the vasodilator infusion. - Resting heart rate was 84 bpm, peak heart rate was 88 bpm. - Resting blood pressure was 155 mmHg/73 mmHg; peak blood pressure was 160 mmHg/63 mmHg FINDINGS Baseline ECG - The baseline ECG was normal with sinus rhythm and normal conduction. - There were no repolarization abnormalities. - There was no atrial or ventricular ectopy. Stress ECG - The pharmacologic stress ECG was negative for ischemia. - Stress induced arrhythmia included occasional PVCs. - Repolarization was unchanged from baseline. Imaging - The overall quality of the study was excellent with mild soft tissue attenuation on rest and stress studies. Computerized motion correction was not applied. - SPECT perfusion images were normal without evidence of ischemia or infarction. - Post stress gated imaging revealed normal left ventricular size with a visually estimated LVEF of 65%. (Lab normals: LVEF >50%, LV Size <150 ml). - There was normal post-stress myocardial thickening and wall motion. - No right ventricular abnormalities were identified. - There was no evidence of abnormal lung or extracardiac activity. - Risk/extent of ischemia per ACC Noninvasive Risk Stratification Guideline: LOW RISK. This study was interpreted and electronically signed by Sukumar Mireles MD on 04/05/2024 4:05:36 PM. ??Final ?? Procedure Note Sukumar Mireles MD - 04/05/2024 Toll -free: [phone] [employer] MYOCARDIAL PERFUSION IMAGING REPORT REST/STRESS SINGLE ISOTOPE GATED SPECT IMAGING USING GD. Patient Name: JASMYN BENSON Gender: F Height: 64 in Weight: 231 lb Study Date: 04/05/2024 8:15:48 AM BSA: 2.08 m? ? ? : 1950 73 years BMI: 39.65 kg/m? ? ? Ord. Prov.: LUIS ENRIQUE DOSS Monitoring Prov.: Leatha Chung Performing Site [facility] Clinical History: Chest pain. No known coronary artery disease. Cardiac Risk Factors: Hypertension, hypercholesterolemia and remotetobacco use. Other Symptomatology: Bilateral breast implant. Cardiac History: Angiogram 2009. Beta serjio/calcium channel serjio/nitrate taken today: Yes. Caffeine/methylxanthine taken within 12 hrs: No. Chest pain/discomfort at baseline: No. IMPRESSION 1. Adequate pharmacologic stress test with regadenoson and low levelexercise. 2. The pharmacologic stress ECG was negative for ischemia. 3. Myocardial perfusion was normal. 4. Left ventricular cavity size was normal (resting EDV 87 ml). 5. Overall left ventricular systolic function was normal without wallmotion abnormalities. The post stress LVEF was visually estimated to be65%. 6. There were no prior studies available for comparison. STRESS MPI PROCEDURE The patient was studied utilizing a same day rest/stress protocol.Myocardial perfusion imaging was performed at rest, 21 minutes followingthe intravenous injection of 10.8 mCi of 99mTc sestamibi. 30 seconds afterthe 15 second IV regadenoson injection, the patient was injected via IVwith 37.2 mCi of 99mTc sestamibi. Gated post-stress tomographic imagingwas performed 31 minutes after stress. After image acquisition wascompleted, data was reconstructed in short, horizontal long and verticallong axis views and tomographic slices were generated. - Pharmacologic stress testing was performed with an IV regadenoson doseof 0.4 mg. - Low level exercise consisting of walking on treadmill at 1.2 mph with a1.0% grade was performed for 1 minute prior to, during, and 2 minutes afterthe vasodilator infusion. - Resting heart rate was 84 bpm, peak heart rate was 88 bpm. - Resting blood pressure was 155 mmHg/73 mmHg; peak blood pressure [id number] mmHg/63 mmHg FINDINGS Baseline ECG - The baseline ECG was normal with sinus rhythm and normal conduction. - There were no repolarization abnormalities. - There was no atrial or ventricular ectopy. Stress ECG - The pharmacologic stress ECG was negative for ischemia. - Stress induced arrhythmia included occasional PVCs. - Repolarization was unchanged from baseline. Imaging - The overall quality of the study was excellent with mild soft tissue attenuation on rest and stress studies. Computerized motion correction wasnot applied. - SPECT perfusion images were normal without evidence of ischemia orinfarction. - Post stress gated imaging revealed normal left ventricular size with a visually estimated LVEF of 65%. (Lab normals: LVEF >50%, LV Size <150ml). - There was normal post-stress myocardial thickening and wall motion. - No right ventricular abnormalities were identified. - There was no evidence of abnormal lung or extracardiac activity. - Risk/extent of ischemia per ACC Noninvasive Risk StratificationGuideline: LOW RISK. This study was interpreted and electronically signed by Robert Reynoso 04/05/2024 4:05:36 PM. Final Luis Enrique Doss DO NM * SCAN-STRESS TEST (04/05/2024 12:00 AM CDT) Anatomical Region Laterality Modality Nuclear Medicine , Other Narrative 04/05/2024 12:00 AM CDT Ordered by an unspecified provider. Other Clinical Staff OTHER * LIPID PANEL W REFLEX MEASURED LDL (03/15/2024 10:04 AM CDT) CHOLESTEROL,TOTAL 150 100 - 199 mg/dL 03/15/2024 4:37 PM CDT [facility] [facility] Comment: Cholesterol, Total Reference Ranges Desirable <200 mg/dL Borderline 200-239 mg/dL High >=240 mg/dL TRIGLYCERIDES 71 <150 mg/dL 03/15/2024 4:37 PM CDT [facility] HDL CHOLESTEROL 50 >40 mg/dL 4:37 PM CDT [facility] NON-HDL CHOLESTEROL 100 <145 mg/dl 03/15/2024 4:37 PM CDT [facility] CHOL/HDL RATIO 3.00 <4.50 03/15/2024 4:37 PM CDT [facility] LDL CHOLESTEROL 86 <=130 mg/dL 03/15/2024 4:37 PM CDT [facility] VLDL CHOLESTEROL 14 <=30 mg/dL 03/15/2024 4:37 PM CDT [facility] PROVIDER ORDERED STATUS RANDOM 03/15/2024 4:37 PM CDT [facility] Blood BLOOD SPECIMEN / Unknown Venipuncture / Unknown 03/15/2024 10:04 AM CDT 03/15/2024 10:04 AM CDT Silvia Marina MD CHEMISTRY Performing Organization Address City/[facility]/ZIP Co de Phone Number [facility] [address] [place] [id number], [place] * HEMOGLOBIN (03/15/2024 10:04 AM CDT) HEMOGLOBIN 15.3 12.0 - 16.0 g/dL 03/15/2024 10:14 AM CDT [facility] MCV 89 80 - 100 fL 03/15/2024 10:14 AM CDT [facility] Blood BLOOD SPECIMEN / Unknown Venipuncture / Unknown 03/15/2024 10:04 AM CDT 03/15/2024 10:04 AM CDT Silvia Marina MD HEMATOLOGY [facility] [address] [place] [address], * (ABNORMAL) BASIC METABOLIC PANEL (03/15/2024 10:04 AM CDT) SODIUM 139 136 - 145 mmol/L 03/15/2024 4:37 PM CDT [facility] POTASSIUM 4.6 3.5 - 5.1 mmol/L 03/15/2024 4:37 PM T [facility] CHLORIDE 104 98 - 107 mmol/L 03/15/2024 4:37 PM T [facility] CO2,TOTAL 24 22 - 29 mmol/L 03/15/2024 4:37 PM T [facility] ANION GAP 11 5 - 18 03/15/2024 4:37 PM T [facility] GLUCOSE 111(H) 70 - 99 mg/dL 03/15/2024 4:37 PM T [facility] CALCIUM 9.1 8.8 - 10.2 mg/dL 03/15/2024 4:37 PM T [facility] BUN 17 8 - 23 mg/dL 03/15/2024 4:37 PM T [facility] CREATININE 0.58 0.50 - 0.90 mg/dL 03/15/2024 4:37 PM T [facility] BUN/CREAT RATIO 29(H) 10 - 20 4:37 PM T [facility] eGFR >90 >90 mL/min/1.7 3m2 03/15/2024 4:37 PM [facility] Comment:As of 2021, eG FR is calculated by the CKD-EPI creatinine equation without race adjustment. ??eGFR can be influenced by muscle mass, exercise, and diet. ??The reported eGFR is an estimation only and is only applicable if the renal function is stable. Blood BLOOD SPECIMEN / Unknown Venipuncture / Unknown 03/15/2024 10:04 AM CDT 03/15/2024 10:04 AM CDT Silvia Marina MD CHEMISTRY [facility] [address] [place] [address], * (ABNORMAL) XR DXA BONE DENSITY 2 [...] Patients: Results are automatically released to your [facility] account once available, in compliance with federal regulations. This means that you may see your results before your provider has had a chance to review them. Please allow 2-3 business days for your provider to comment on the results. XR DXA Bone Mineral Density (BMD) EXAM LOCATION: [facility] [address] [facility] [address] PATIENT NAME: Jasmyn Benson DATE OF : 1950 EXAM DATE: 03/05/2021 REQUESTING PROVIDER: Silvia Marina MD GENDER AT : female HEIGHT: 5' 4.25 (02/26/2021) WEIGHT: ??243 lb 12.8 oz (02/26/2021) MENOPAUSAL STATUS: Postmenopausal RACE/ETHNICITY: White RISK FACTORS: Family History of Hip Fracture (parental), Smoking (prior) and White Race CURRENT MEDICATION FOR BONE LOSS: NONE INDICATION: Follow-up of existing osteopenia COMPARISON DATE(S): 2015 at [facility] most recent scan here DXA scans are compared to prior studies for a patient only when the two (or more) studies were performed on the same scanner. It is not possible to compare data generated on one scanner to data from another because there are not standards in DXA equipment. This applies even if the two scanners are made by the same student ministry pastor. PROCEDURE: Dual-energy x-ray absorptiometry performed with routine [...] * ANTI HCV (02/06/2020 11:55 AM CDT) Pathologist [facility] HEPATITIS C ANTIBODY Non-React tawny Non-React tawny 02/06/2020 8:00 PM CDT [facility] Comment:Antibodies to HCV no t detected; does not exclude the possibility of exposure to HCV. Blood BLOOD SPECIMEN / Unknown Venipuncture / Unknown 02/06/2020 11:55 AM CDT 02/06/2020 11:57 AM CDT Silvia Marina MD SEND OUTS [facility] [address] [place] [address], [place] * COLONOSCOPY (05/21/2016 8:01 AM FOUNDATION ENGINEER) 05/21/2016 8:01 AM FOUNDATION ENGINEER Narrative 05/21/2016 8:01 AM FOUNDATION ENGINEER Addendum Number: 1 ?? Addendum Date: 05/21/2016 [...] candidate for conscious sedation. ? The PCF-Q290AL [id number] was passed through the anus and advanced [...] or abscess without bleeding CPT copyright 2015 [employer]. All rights reserved. The codes documented in this report are preliminary and upon certified procedural coder review may be revised to meet current [...] adequate candidate for conscious sedation. The PCF-Q290AL [id number] was passed through the anus and advanced [...] perforation or abscess withoutbleeding CPT copyright 2015 [employer]. All rights reserved. The codes documented in this report are preliminary and upon certified procedural coder reviewmay be revised to meet current compliance requirements. Scope In: 8:07:51 AM Scope Withdrawal Time 0 hours 9 minutes 18 seconds Scope Out: 8:22:06 AM Rancho Stoll MD PROCEDURE ORD from Last 3 Months or Most Recently Relevant to Health Maintenance Advance Directives Documents on File Type Date Recorded Patient Core Sucker Expl anation Healthcare Directive 11/07/2013 9:47 AM [facility], 11/22/2004 * Full Code (Latest Code Status on File) Date Activated Date Inactivated Comments 07/05/2010 10:22 PM 07/07/2010 7:21 PM Care Teams Plisse Machine Operator Helper Relationship Specialty Start Date End Date Silvia Marina MD [address] [place] [address] PCP - General Family Practice 08/03/11 Viktor Wellington MD [address] [place] [address] General Surgery Surgery - General 08/29/12 Ollie Swift MD [address] [place] [address] Orthopedics Surgery - Orthopedics 09/05/13 Clay Saleem [address] [place] [id number] Ophthalmology Patient Care Associate 10/25/15
--- NOTE | 2024-04-12 09:02 | W.PM.H&PU ---
History & Physical Update History & Physical Update H&P Reviewed and patient assessed: No changes noted
--- NOTE | 2024-04-12 09:03 | CRLHL7_ITS ---
For Patients: As a result of the Cures Act, medical imaging exams and procedure reports are released immediately into your electronic medical record. You may view this report before your referring provider. If you have questions, please contact your health care provider. INDICATION: Postop. FINDINGS: Two views of the left knee show no evidence of acute fracture or dislocation. Left knee arthroplasty changes appear intact. No other bony or soft tissue abnormalities identified. Dictated by Mendez Escobar MD @ 04/14/2024 10:00:23 AM (Electronically Signed)
[2024-04-12] MEDS: ACETAMINOPHEN 500 MG TABLET 1000 MG PO ×3 (09:06→21:29)
[2024-04-12] MEDS: OXYCODONE (CR) 10 MG TAB.ER.12H PO (09:06)
[2024-04-12] MEDS: SODIUM CHLORIDE 0.9 % (FLUSH) 10 ML SYRINGE IVF (09:06)
[2024-04-12] MEDS: LACTATED RINGERS 1000 ML 1,000 ML 100 ML IV ×2 (09:07→11:45)
[2024-04-12] MEDS: MIDAZOLAM HCL 1 MG/ML inj IVP (10:05)
[2024-04-12] MEDS: fentaNYL 100 MCG/2 ML inj IVP (10:05)
--- NOTE | 2024-04-12 10:19 | SUR.PREOP ---
TIME?OUT:?1005 PT/RN/MDA?VERIFICATION?OF?SURGICAL?SITE,?PROCEDURE,?AND?CONSENT OBTAINED?PRIOR?TO?INVASIVE?PROCEDURE.
[2024-04-12] MEDS: CEFAZOLIN 2 GM in 0.9 % SODIUM CHLORIDE Mini-bag 100 ML IVPB ×2 (10:46→16:41)
[2024-04-12] MEDS: TRANEXAMIC ACID 100 MG/ML INJ 1000 MG IV (10:47)
--- NOTE | 2024-04-12 11:03 | P.NB_ITS ---
Nerve Block Nerve Block Time Seen by Provider: 10:15 Date Seen: 04/12/24 Type of block requested by surgeon for post-operative analgesia: adductor canal Time out performed: Yes Verification of patient name: Yes Verification of date of : Yes Site marking: site marked Name of person performing procedure: Cortes Continuous monitoring Was continuous monitoring of O2 sat, B/P, ekg monitor tech, recorded every 15 minutes?: Yes Procedure Checklist: sterile prep, needles and gloves Ultrasound guided. Images saved: Yes Medications given in 5ml increments after negative aspiration: Ropivicaine %: 0.5 mL: 20 Needle gauge: 20 Decadron (mg): 10 Precedex (mcg): 25 Patient tolerated procedure well: Yes Additional comments: Needle noted adjacent to nerve Block Charges Block Charge (with Pro Fee): Femoral Nerve Use of Ultrasound Machine for Block: Yes- US Guidance/pain block
--- NOTE | 2024-04-12 11:05 | W.PM.NB ---
Nerve Block Nerve Block Time Seen by Provider: 10:15 Date Seen: 04/12/24 Type of block requested by surgeon for post-operative analgesia: geniculars Side: left Time out performed: Yes Verification of patient name: Yes Verification of date of : Yes Site marking: site marked Name of person performing procedure: Cortes Continuous monitoring Was continuous monitoring of O2 sat, B/P, monitoring coordinator, recorded every 15 minutes?: Yes Procedure Checklist: sterile prep, needles and gloves Medications given in 5ml increments after negative aspiration: Ropivicaine %: 0.5 mL: 9 Needle gauge: 25 Patient tolerated procedure well: Yes Block Charges Block Charge (with Pro Fee): Genicular Nerve Block Use of Ultrasound Machine for Block: No
--- NOTE | 2024-04-12 11:05 | W.ANESCHARGE ---
Anesthesia Charges Start Date/Time Anesthesia Start Date: 04/12/24 Anesthesia Start Time: 10:30 Stop Date/Time Anesthesia Stop Date: 04/12/24 Anesthesia Stop Time: 12:41 Summary Extremes of Age - Over 70 or under 1: MDA
--- NOTE | 2024-04-12 12:08 | PM.ORPRC ---
Procedure Note Date of procedure: 04/12/24 Procedure: PREOPERATIVE DIAGNOSIS: 1. Left knee osteoarthritis, primary, severe POSTOPERATIVE DIAGNOSIS: 1. Left knee osteoarthritis, primary, severe PROCEDURE: 1. Left total knee arthroplasty - subvastus SURGEON: Pratik Velásquez MD. SENIOR INFORMATICA ETL DEVELOPER: JAE Ojeda - Of note, a skilled neurology physician assistant was critical for this case to aid in patient positioning, tissue retraction, limb manipulation/positioning, and closure. ANESTHESIA: Spinal anesthetic EBL: 50ml IMPLANTS: DePuy J&J all cemented TKA - Attune PS femur size 6 narrow, size 5 tibia, 5 mm poly spacer, 35 mm patella TOURNIQUET: 90 min at 300 torr COMPLICATIONS: None evident INDICATIONS: The patient is a pleasant 73-year-old female who has experienced severe left knee pain and difficulty bearing weight. Workup included x-rays which revealed severe osteoarthrosis in the knee. Given the deformity, the dysfunction, and the pain, as well as the failure of nonoperative management, recommendation was made for surgery. FINDINGS: Full-thickness chondral loss diffusely throughout the medial and lateral compartments and to a lesser degree patellofemoral compartment. Degenerative meniscus pathology both compartments. Moderate effusion upon entering the joint. DESCRIPTION OF PROCEDURE: Following a thorough discussion of risks, benefits, and alternatives consent was obtained and the left knee was marked. The patient was brought to the operating room and placed supine on the operating table. Induction of anesthesia was undertaken. 2 g IV Ancef and 1 g tranexamic acid was administered within 1 hr of incision preoperatively. Proper time-out was performed identifying proper patient, site, procedure. The operative extremity was prepped and draped in the appropriate sterile fashion using ChloraPrep after the patient was positioned supine with all bony prominences well padded. A longitudinal, anterior, midline skin incision was made starting approximately 3cm proximal to the superior pole of the patella and advanced distal to the tibial tubercle. A subvastus approach was utilized. A medial subperiosteal sleeve was created with knife, tinajero elevator and curved osteotome. The retropatellar fatpad was resected and the synovium in the suprapatellar pouch excised to visualize the anterior femoral cortex. Femoral preparation was performed via an intramedullary guide. Step drill allowed access into the femoral canal. The distal cutting guide was placed with 5? of valgus and 10 mm cut on the distal femur. Femur was sized using a posterior referencing guide as well as referencing the trans epicondylar axis and Whitesides line in 5? of external rotation. This found have a best fit with the sizing noted above. The 4 in 1 cutting block was then placed, and the distal femur shaped accordingly. The box cut was then created and the trial implant inserted to confirm appropriate fit. We turned our attention to the proximal tibia. Extramedullary guide was utilized for cutting with the goal of being 90 degree cut from the mechanical axis of the tibia in the varus/valgus plane utilizing tibial crest as the primary alignment. Initially a 2 mm resection was performed from the medial tibial plateau. Ultimately, balancing was achieved in both flexion and extension in both varus and valgus. The knee was able to achieve full extension as well comfortably. The patella was initially measured and found have a thickness of 21 mm. It was resected back to approximately 14 mm. It was sized to be a best fit with as noted above. This was drilled, trial placed. All trials were placed and found to have an excellent stability and balance. At this stage, trial implants were removed, the knee was thoroughly irrigated with normal saline, and the cement was mixed. After irrigation, the knee was thoroughly dried, and cement placed, with the real tibial and femoral implants placed along with the patella. Trial poly spacer was placed and confirmed to have excellent range of motion and full extension, and the real poly spacer opened and inserted. All extra cement was removed, and a 3 min Betadine soak performed. Finally, a final irrigation round with normal saline was performed. Closure performed with 0 PDS and #0 Stratafix for the quad tendon/retinaculum. 2-0 Vicryl/Stratafix for the subcutaneous and 4-0 Monocryl for subcuticular closure. Dressings were applied and the patient was awoken from anesthesia after the tourniquet deflated and transferred the PACU in stable condition. A skilled neurology physician assistant was critical for this case to aid in patient positioning, tissue retraction, bone exposure, limb manipulation/positioning, patient safety, and closure. PLAN: 1. Weight bear as tolerated operative extremity. 2. 23 hr perioperative antibiotics. 3. Ice. 4. PT/OT consults for ambulation assistance/mobility education. 5. Social work consult for discharge planning. 6. DVT prophylaxis with at SCDs and aspirin twice daily.
[2024-04-12] MEDS: LACTATED RINGERS 1000 ML 1,000 ML 75 ML IV (13:17)
[2024-04-12] MEDS: HYDROmorphone 0.5 mg/0.5 ml inj IVP ×2 (14:36→16:35)
--- NOTE | 2024-04-12 14:44 | PM.IMCN1 ---
Date of Consult Patient: Michael Patient Consult date: 04/12/24 Requesting Physician: Orthopedics Primary Care Provider: Silvia Marina MD Consult Narrative Narrative: Jasmyn Benson is a 73 year old female admitted to the hospital for left total knee arthroplasty. Procedures performed by Dr. Velásquez. No complications. He has requested consultation for management of medical problems following surgery. Patient reports doing well following surgery. Her block is still in effect but she is not have any significant knee pain. She is now warmed up. She is not short of breath but nurses have noted hypoxia and have been giving her supplemental oxygen. No history of respiratory disease. Does have a history of stable coronary disease without heart failure. Remote history of smoking. Possible sleep apnea. Preop physical did not identify any significant concerns for perioperative care. Because of her history of coronary disease she underwent stress testing 1 week ago. According to the patient's report the stress test was okay [place] In November she had shoulder surgery and did have some chest pain with that. Since then she has not had any chest pain. Previously had right knee arthroplasty and did well after that. No problems with bleeding or blood clots or problems with anesthesia. [facility] Medical History (Updated 04/12/24 @ 15:02 by Juan Neff MD) Osteoarthritis of left knee ?M17.12 - Unilateral primary osteoarthritis, left knee (ICD-10) History of varicose veins (10/21/12) ?Z86.79 - Personal history of other diseases of the circulatory system (ICD-10) Personal history of colonic polyps (10/24/10) ?Z86.010 - Personal history of colonic polyps (ICD-10) Dysthymic disorder (05/30/07) ?F34.1 - Dysthymic disorder (ICD-10) Osteoarthritis of right shoulder ?M19.011 - Primary osteoarthritis, right shoulder (ICD-10) Anxiety disorder ?F41.9 - Anxiety disorder, unspecified (ICD-10) Coronary artery disease ?I25.10 - Atherosclerotic heart disease of [place] coronary artery without angina pectoris (ICD-10) COVID-19 ?U07.1 - COVID-19 (ICD-10) Carcinoma in situ of breast (~2004) ?D05.90 - Unspecified type of carcinoma in situ of unspecified breast (ICD-10) Obesity ?E66.9 - Obesity, unspecified (ICD-10) Osteopenia ?M85.80 - Other specified disorders of bone density and structure, unspecified site (ICD-10) Benign neoplasm of colon ?D12.6 - Benign neoplasm of colon, unspecified (ICD-10) Allergic rhinitis ?J30.9 - Allergic rhinitis, unspecified (ICD-10) Depression ?F32.A - Depression, unspecified (ICD-10) Hypertension ?I10 - Essential (primary) hypertension (ICD-10) Hyperlipidemia ?E78.5 - Hyperlipidemia, unspecified (ICD-10) Surgical History (Updated 04/12/24 @ 14:59 by Juan Neff MD) History of arthroplasty of left knee ?Z96.652 - Presence of left artificial knee joint (ICD-10) Status post reverse arthroplasty of right shoulder (11/22/23) ?Z96.611 - Presence of right artificial shoulder joint (ICD-10) Hx of colonoscopy ?Z98.890 - Other specified postprocedural states (ICD-10) Hx of tubal ligation ?Z98.51 - Tubal ligation status (ICD-10) Status post total knee replacement, 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/22) ?Z96.651 - Presence of right artificial knee joint (ICD-10) Status post ORIF of fracture of ankle (04/23/14) ?Z98.890 - Other specified postprocedural states (ICD-10) ?Z87.81 - Personal history of (healed) traumatic fracture (ICD-10) H/O cataract extraction (~2020) ?Z98.49 - Cataract extraction status, unspecified eye (ICD-10) H/O bilateral mastectomy (2004) ?Z90.13 - Acquired absence of bilateral breasts and nipples (ICD-10) Family History Mother Myocardial infarction High blood pressure Social History (Updated 04/12/24 @ 15:00 by Juan Neff MD) Narrative: Lives independently with in a town house in [place]. She has a few steps to get in then can live on 1 level. She reports they are building a ramp for her so she does not have to do steps to get in. Travels on cruises periodically. Smoked 30 pack years, quit in 1999. Drinks about 5 glasses of wine a week. What is your current living situation?: I presently have a place to live Problems where you live: no known problems In the past 12 months, utilities in danger of being shut off: no In past 12 months, lack of transportation kept you from medical appts, meetings, work, or getting things needed for daily living: no In the past 12 mos, have been you worried that your food would run out before you had money to buy more?: never true In the past 12 mos, the food you bought just didn't last and you didn't have money to buy more?: never true Smoking Status: Former smoker What tobacco products do you use: cigarettes Smoking quit date/years: >15 years ago Do you use any of these nicotine containing products: None Second hand tobacco smoke exposure: No How often do you have a drink containing alcohol: monthly or less Alcohol type: wine How many standard drinks containing alcohol do you have on a typical day: 3 or 4 How often do you have six or more drinks on one occasion: Never AUDIT-C Alcohol total score: 2 Non-prescribed substance use: denies use Caffeine: Yes How often does anyone, including family, friends and others, physically hurt you: never How often does anyone, including family, friends and others, insult or talk down to you: never How often does anyone, including family, friends and others, threaten you with harm: never How often does anyone, including family, friends and others, scream or curse at you: never service: No Meds Home Medications and Allergies Home Medications ?Medication ?Instructions ?Recorded ?Confirmed ?Type amlodipine 5 mg tablet 5 mg PO DAILY 03/10/22 04/12/24 History atenolol 25 mg tablet 25 mg PO DAILY 03/10/22 04/12/24 History hydrochlorothiazide 12.5 mg capsule 12.5 mg PO DAILY 03/10/22 04/12/24 History nitroglycerin 0.4 mg sublingual 0.4 mg sublingual Q5M PRN 03/10/22 04/12/24 History tablet triamcinolone acetonide 0.1 % 1 applic topical TID PRN 03/10/22 04/12/24 History topical cream atorvastatin 20 mg tablet 20 mg PO DAILY 08/28/22 04/12/24 History sertraline 50 mg tablet 50 mg PO DAILY 08/28/22 04/12/24 History calcium carbonate 600 mg-vitamin 2 cap PO DAILY 04/10/24 04/12/24 History D3 12.5 mcg (500 unit) capsule Allergies Allergy/AdvReac Type Severity Reaction Status Date / Time No Known Drug Allergies Allergy Verified 04/12/24 08:53 Exam Narrative: Exam Narrative: She is alert and appears in no distress. Breathing is unlabored on supplemental oxygen. Eyes normal. Oropharynx with small airway. Neck is supple without mass or adenopathy. Respirations are clear to auscultation. No wheezing rales or rhonchi. Breathing is unlabored. Cardiovascular: S1, S2, regular rate and rhythm. No murmur gallop or rub. Abdomen: Bowel sounds active. Abdomen is soft without tenderness or mass. Lower extremities are examined. She is just beginning to get sensation back in her feet. No significant edema. Intact pulses and motion in both feet and ankles. Const: Vital Signs, click to edit/add: Vital Signs - 24 hr 04/12/24 09:15 04/12/24 10:05 04/12/24 10:10 Temperature 97.7 F Pulse Rate 59 L 53 L 56 L Respiratory Rate 16 16 16 Blood Pressure 132/94 H 152/87 H 106/71 Pulse Oximetry 93 96 92 Oxygen Delivery Me thod Room Air Room Air Nasal Cannula Oxygen Flow Rate 2 04/12/24 12:40 04/12/24 12:45 04/12/24 12:50 Temperature 98 F Pulse Rate 58 L 58 L 54 L Respiratory Rate 14 14 16 Blood Pressure 112/73 114/77 117/84 Pulse Oximetry 91 92 92 Oxygen Delivery Me thod Room Air Room Air Room Air Oxygen Flow Rate 04/12/24 12:55 04/12/24 13:00 04/12/24 13:05 Temperature 97.7 F Pulse Rate 52 L 52 L 57 L Respiratory Rate 16 16 16 Blood Pressure 135/81 130/86 135/94 H Pulse Oximetry 92 92 96 Oxygen Delivery Me thod OxyMask OxyMask Room Air Oxygen Flow Rate 6 3 04/12/24 13:07 04/12/24 13:10 04/12/24 13:20 Temperature 97.7 F 98.3 F 96.9 F L Pulse Rate 57 L 58 L 58 L Respiratory Rate 16 16 18 Blood Pressure 135/94 H 138/77 128/82 Pulse Oximetry 96 93 93 Oxygen Delivery Me thod Room Air Room Air Room Air Oxygen Flow Rate 04/12/24 13:36 04/12/24 13:45 04/12/24 14:00 Temperature 97.1 F L 96.8 F L 96.5 F L Pulse Rate 55 L 57 L 59 L Respiratory Rate 16 16 16 Blood Pressure 128/81 127/75 120/74 Pulse Oximetry 91 92 92 Oxygen Delivery Me thod Room Air Room Air Nasal Cannula Oxygen Flow Rate 2 2 04/12/24 14:15 Temperature 96.4 F L Pulse Rate 60 Respiratory Rate 16 Blood Pressure 122/83 Pulse Oximetry 95 Oxygen Delivery Me thod Nasal Cannula Oxygen Flow Rate 2 Documenting provider has reviewed patient's vital signs: yes Assessment and Plan Assessment and plan (1) History of arthroplasty of left knee: Problem comment: 04/12/2024, Dr. Velásquez, no complications Status: Acute (2) Coronary artery disease: Problem comment: Angiogram 06/2010 showed 40% left anterior descending lesion and the rest of the coronary arteries were normal. Stress test the last week of March 2024 reportedly normal. Not recent having symptoms suggestive of heart disease. Status: Chronic (3) Hypertension: Problem comment: Resume home medications as tolerated Status: Chronic (4) Postoperative hypoxia: Problem comment: I suspect this is a combination of sedating medicines from surgery as well as some possible undiagnosed sleep apnea. Not obviously related to heart disease or primary lung disease Status: Acute Plan Continue in hospital for postoperative care, therapy, pain management, management and monitoring of chronic medical problems. Total Time Spent Total Time Spent: Total time spent today is 35 minutes evaluation management discussing with patient other providers ongoing evaluation and management of hypoxia and hypertension
[2024-04-12] MEDS: OXYCODONE 5 MG TABLET PO ×4 (15:55→22:22)
[2024-04-12] MEDS: SENNOSIDES 1 TAB TABLET 2 TAB PO (21:29)
[2024-04-12] MEDS: ASPIRIN 81 MG TABLET EC PO (21:30)
[2024-04-13 01:07] VITALS: BP 147/87; PULSE 84; RESP 18; TEMP 36.6; O2SAT 90
[2024-04-13] MEDS: CEFAZOLIN 2 GM in 0.9 % SODIUM CHLORIDE Mini-bag 100 ML IVPB ×2 (01:14→10:11)
[2024-04-13] MEDS: OXYCODONE 5 MG TABLET PO ×2 (01:18→08:01)
[2024-04-13] MEDS: ACETAMINOPHEN 500 MG TABLET 1000 MG PO ×2 (03:17→09:44)
[2024-04-13 06:27] LABS: Basophils Percent Auto 0.1 % (0.0-3.0); Eosinophils Percent Auto 0.1 % (0.0-7.0); Hematocrit 39.8 % (33.0-51.0); Hemoglobin* 12.8 gm/dL (12.0-16.0); Immature Granulocytes Pct Auto 0.9 %; Lymphocytes Percent Auto 8.8 % (20-44); Mean Corpuscular HGB Conc 32 gm/dL (32-36); Mean Corpuscular Hemoglobin 30 pg (26-34); Mean Corpuscular Volume 93 fL (80-100); Monocytes Percent Auto 14.2 % (0.0-11.0); Neutrophils Percent Auto 75.9 % (42.0-72.0); Platelet Count* 259 K/uL (140-440); RDW Coefficient of Variation % 13.5 % (11.5-15.5); Red Blood Count 4.28 m/uL (4.00-5.20); White Blood Count* 12.37 K/uL (4.50-11.00)
[2024-04-13 06:32] LABS: Slide Review Reflex No
[2024-04-13 06:39] LABS: Potassium* 4.9 mmol/L (3.6-5.1); Sodium* 138 mmol/L (135-149)
[2024-04-13 06:42] LABS: Blood Urea Nitrogen* 26 mg/dL (7-30); Creatinine* 0.7 mg/dL (0.5-1.5); Est. Creatinine Clearance* 42.62; Estimated Glomerular Filt Rate 91 ml/min
[2024-04-13 07:15] VITALS: BP 110/68; PULSE 75; RESP 18; TEMP 36.5; O2SAT 98
--- NOTE | 2024-04-13 08:18 | PM.ORPN ---
Subjective Subjective Date Seen: 04/13/24 Principal diagnosis: Status postop day 1 left total knee arthroplasty Interval history: Patient reports doing well. No acute events over night. Reports left knee hurts, but tolerable. Pain managed with scheduled and PRN medications, ice. DVT prophylaxis: 81 mg aspirin by mouth twice daily, SCDs, walking. Denies fevers, chills, aches, N/V, CP, SOB/TELLEZ, or lightheadedness. No flatus to date. Feels her stomach rumbling. Ortho Exam Narrative Exam Narrative: -Patient appears comfortable; no apparent acute distress -Alert and oriented times 3 -Operative knee mild-moderately swollen; soft tissues supple; no significant ecchymosis; no erythematous streaking Warmth appropriate -Surgical dressing clean, dry, intact; no drainage -Bilateral calfs soft; no significant swelling, edema, tenderness, erythema, discoloration, warmth, or palpable cords -2+ DP/PT pulses, intact dermatomes and myotomes distally (5/5 strength) Const Vital Signs, click to edit/add: Vital Signs - 24 hr 04/12/24 09:15 04/12/24 10:05 04/12/24 10:10 Temperature 97.7 F Pulse Rate 59 L 53 L 56 L Pulse Rate [Pulse Oximeter] Respiratory Rate 16 16 16 Blood Pressure 132/94 H 152/87 H 106/71 Blood Pressure [Left Arm] Pulse Oximetry 93 96 92 Oxygen Delivery Method Room Air Room Air Nasal Cannula Oxygen Flow Rate 2 04/12/24 12:40 04/12/24 12:45 04/12/24 12:50 Temperature 98 F Pulse Rate 58 L 58 L 54 L Pulse Rate [Pulse Oximeter] Respiratory Rate 14 14 16 Blood Pressure 112/73 114/77 117/84 Blood Pressure [Left Arm] Pulse Oximetry 91 92 92 Oxygen Delivery Method Room Air Room Air Room Air Oxygen Flow Rate 04/12/24 12:55 04/12/24 13:00 04/12/24 13:05 Temperature 97.7 F Pulse Rate 52 L 52 L 57 L Pulse Rate [Pulse Oximeter] Respiratory Rate 16 16 16 Blood Pressure 135/81 130/86 135/94 H Blood Pressure [Left Arm] Pulse Oximetry 92 92 96 Oxygen Delivery Method OxyMask OxyMask Room Air Oxygen Flow Rate 6 3 04/12/24 13:07 04/12/24 13:10 04/12/24 13:20 Temperature 97.7 F 98.3 F 96.9 F L Pulse Rate 57 L 58 L 58 L Pulse Rate [Pulse Oximeter] Respiratory Rate 16 16 18 Blood Pressure 135/94 H 138/77 128/82 Blood Pressure [Left Arm] Pulse Oximetry 96 93 93 Oxygen Delivery Method Room Air Room Air Room Air Oxygen Flow Rate 04/12/24 13:36 04/12/24 13:45 04/12/24 14:00 Temperature 97.1 F L 96.8 F L 96.5 F L Pulse Rate 55 L 57 L 59 L Pulse Rate [Pulse Oximeter] Respiratory Rate 16 16 16 Blood Pressure 128/81 127/75 120/74 Blood Pressure [Left Arm] Pulse Oximetry 91 92 92 Oxygen Delivery Method Room Air Room Air Nasal Cannula Oxygen Flow Rate 2 2 04/12/24 14:15 04/12/24 14:45 04/12/24 15:00 Temperature 96.4 F L 96.4 F L Pulse Rate 60 58 L Pulse Rate [Pulse Oximeter] Respiratory Rate 16 14 Blood Pressure 122/83 121/79 Blood Pressure [Left Arm] Pulse Oximetry 95 93 94 Oxygen Delivery Method Nasal Cannula Nasal Cannula Oxygen Flow Rate 2 2 04/12/24 15:00 04/12/24 15:15 04/12/24 16:00 Temperature 97.8 F 97.8 F Pulse Rate 63 64 Pulse Rate [Pulse Oximeter] Respiratory Rate 16 16 16 Blood Pressure 130/77 141/89 H Blood Pressure [Left Arm] Pulse Oximetry 94 99 97 Oxygen Delivery Method Room Air Room Air Room Air Oxygen Flow Rate 04/12/24 17:00 04/12/24 18:00 04/12/24 19:00 Temperature 97.8 F 97.8 F 98.1 F Pulse Rate 64 64 80 Pulse Rate [Pulse Oximeter] Respiratory Rate 16 16 18 Blood Pressure 130/82 99/64 150/84 H Blood Pressure [Left Arm] Pulse Oximetry 97 95 88 Oxygen Delivery Method Room Air Room Air Room Air Oxygen Flow Rate 04/12/24 21:32 04/12/24 21:32 04/12/24 21:32 Temperature 97.8 F Pulse Rate Pulse Rate [Pulse Oximeter] 80 Respiratory Rate 18 18 Blood Pressure Blood Pressure [Left Arm] 132/81 Pulse Oximetry 90 90 90 Oxygen Delivery Method Room Air Room Air Oxygen Flow Rate 04/13/24 01:07 Temperature 97.9 F Pulse Rate Pulse Rate [Pulse Oximeter] 84 Respiratory Rate 18 Blood Pressure Blood Pressure [Left Arm] 147/87 H Pulse Oximetry 90 Oxygen Delivery Method Room Air Oxygen Flow Rate Assessment and Plan Assessment and plan (1) History of arthroplasty of left knee: Problem details: 04/12/2024, Dr. Velásquez, no complications Status: Acute (2) Coronary artery disease: Problem details: Angiogram 06/2010 showed 40% left anterior descending lesion and the rest of the coronary arteries were normal. Stress test the last week of March 2024 reportedly normal. Not recent having symptoms suggestive of heart disease. Status: Chronic (3) Hypertension: Problem details: Resume home medications as tolerated Status: Chronic (4) Postoperative hypoxia: Problem details: I suspect this is a combination of sedating medicines from surgery as well as some possible undiagnosed sleep apnea. Not obviously related to heart disease or primary lung disease Status: Acute Plan - Complete 23 hour perioperative antibiotics. - PT/OT consult for education and assistance. - Social work consult for discharge planning - Prescribed analgesics as needed - DVT prophylaxis: 81 mg aspirin by mouth twice daily, walking, and SCDs - Anticipation is for discharge to home with today 04/13/2024 if the patient remains medically stable, pain is controlled, and they are safe with mobilization.
[2024-04-13] MEDS: SENNOSIDES 1 TAB TABLET 2 TAB PO (08:48)
[2024-04-13] MEDS: ATORVASTATIN 10 MG TABLET 20 MG PO (08:49)
[2024-04-13] MEDS: SERTRALINE 50 MG TABLET PO (08:50)
[2024-04-13] MEDS: AMLODIPINE 5 MG TABLET PO (08:51)
[2024-04-13] MEDS: ASPIRIN 81 MG TABLET EC PO (08:52)
[2024-04-13] MEDS: atenoloL 25 MG TABLET PO (09:45)
--- NOTE | 2024-04-13 12:06 | PC.NURSE ---
shift note: vss stable. pt afeb. drsg c/d/i to lt knee. PP+ bilat. IV dc'd intact. Reviewed dc instructions and copies sent with pt at [facility]. Belongings reviewed and sent with pt at [facility].
== END 2024-04-13 11:30 | disposition home or self-care (01) ==
LOC: OR 08:33 → MEDSURG 08:35
PROVIDERS: PCP Family Medicine; Visit Provider Orthopaedic Surgery Sports Medicine
PROC: (CPT 27447; principal; 2024-04-12 10:45)
DX: M17.12 Unilateral primary osteoarthritis, left knee (principal); G89.18 Other acute postprocedural pain; R09.02 Hypoxemia; I10 Essential (primary) hypertension; I25.10 Atherosclerotic heart disease of native coronary artery without angina pectoris; E66.01 Morbid (severe) obesity due to excess calories; Z68.39 Body mass index [BMI] 39.0-39.9, adult
CPT/HCPCS: 27447; 01402; 36415; 64447; 64454; 73560; 76942; 82565; 84132; 84295; 84520; 85025; 97110; 97116; 97161; 97165; 97530; 97535; 99100; A9270; C1776; J0690; J1100; J1171; J2250; J2405; J2704; J2795; J3010; J7120

== ENCOUNTER 2024-05-31 09:00 | Outpatient (RCR) | payer MEDICARE, BC, SELFPAY ==
--- NOTE | 2024-04-14 14:59 | PT.OPEX ---
PT [place] Outpatient Eval PT [facility] Outpatient Eval Start: 04/14/24 07:44 Freq: Status: Active Protocol: Document 04/14/24 07:44 RAJENDRA (Rec: 04/14/24 14:58 [email or web address] [id number]) E-signed By Stacey Amos PT Physical Therapy Outpatient Evaluation Insurance Information Recert Due Date 07/12/24 Insurance Name Medicare B Medical Diagnosis LEFT KNEE SEVERE OA S/P LEFT TKA 04/12/24 Treating Diagnosis KNEE PAIN WEAKNESS ANTALGIC GAIT Referring MD DR. BK SCHUMACHER Subjective Preferred Name TYREE Wall PATIENT REPORTS MANY YEAR H/O KNEE PAIN AND HAS RECENTLY COMPLETED REHAB FOR rTSA. SHE STATES, I DON'T REMEMBER MY OTHER KNEE HURTING THIS BAD AFTERWARD. SHE IS ACCOMPANIED BY HER SPOUSE AND USING FWW FOR AMB . 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 PMHX INCLUDES BUT NOT LIMITED TO rTA (11/22/23), R/L SEVERE OA, R TKA (08/2022), ANXIETY AND DEPRESSION, H/O BREAST CA W/ BILATERAL MASTECTOMY (2004), OSTEOPENIA, CAD, RIGHT ANKLE ORIF (2013); PATIENT DEMONSTRATES MODERATE EDEMA AND ECCHYMOSIS ABOUT HER MID THIGH TO CALF. HER INCISION IS COVERED BY NON-REMOVABLE BANDAGE AND REPORTS 1010 PAIN . SHE IS USING HER ICE, REST, AND PO MEDS INSTRUCTED BUT NOT FINDING MUCH MGMT. SHE AMB WITH FWW WITH MOD ANTALGIC GAIT BUT MIN STEP THROUGH GAIT PATTERN AND MIN FOOT CLEARANCE. SHE HAS BEEN PERFORMING HER HEP INSTRUCTED SINCE HER RETURN FROM HOSPITAL WITH SPOUSE ASSISTING WITH EDEMA MGMT. TODAY, SHE MEASURES 0-8-68 IN SUPINE. WE DISCUSSED SYMPTOM MGMT, LEG/KNEE PLACEMENT, AND S/S OF DVT AND INFECTION. UPDATED HER HEP AND PERFORMED HER SUPINE AND SEATED PORTION. SHE IS INSTRUCTED TO FOCUS ON SYMPTOM MGMT AND MOTION THIS WEEKEND (IN THAT ORDER). SHE WOULD BENEFIT FROM SKILLED PHYSICAL THERAPY TO ADDRESS HER SYMPTOM MGMT, ROM, STRENGTH, BALANCE, GAIT AND OVERALL SAFE AND FUNCTIONAL MOBILITY. PATIENT VERBALIZED UNDERSTANDING TO ALL SKILLED INSTRUCTION AND AGREEABLE TO POC AND FREQ Primary Functional Limitations SLEEPING, TRANSITIONAL MVMT, STDG , WALKING, STOOPING, SQUATTING Plan of Care Rehabilitation Potential Good Physical Therapy Goals 1. DECREASE L KNEE PAIN TO </3 /10 WITH ADL'S AND PROGRESSION OF PHYSICAL THERAPY OVER THE NEXT 4-6 WEEKS 2. IMPROVE ROM OF L KNEE TO 0- 0-120 IN SUPINE (OR GREATER) TO RETURN TO FUNCTIONAL ROM AND IMPROVE GAIT MECHANICS OVER THE NEXT 6-8 WEEKS 3. IMPROVE L KNEE/LE FUNCTIONAL MOBILITY AND FUNCTIONAL STRENGTH TO RETURN TO INDEPENDENT TRANSFERS WITH EASE, EXTENDED STANDING AND WALKING FOR ADL'S, HOUSEHOLD ACTIVITIES AND IMPROVED GAIT MECHANICS OVER THE NEXT 8-10 WEEKS. 4. PATIENT WILL DEMONSTRATE COMPLETE INDEPENDENCE AND THE ABILITY TO PROGRESS HER HEP FOR MAINTENANCE AND CONTINUED IMPROVEMENT OF HIS CORE / BLE STRENGTH AND STABILITY. Coordination/Communication With Referral Source Treatment Plan/Direct Interventions Electrical Stimulation,Gait Training,Ice/Cold/ Vasopneumatic,Joint Mobilization,Manual Therapy, Neuromuscular Re-ed,Self-Care/ Home Management,Therapeutic Activities,Therapeutic Exercises Frequency/Duration 1-2X/WK Patient Will Be Discharged From Therapy Completion of LTG(s), Independently Progressing Evaluation Billing Untimed Code Treatment Minutes 15 PT Eval No Charge No Complexity Low Certification Information Initial Certification Date 04/14/24 Ending Certification Date 07/12/24 Provider Signature Required Yes Provider Signature Shows Agreement With POC & Medical Necessity Physician NPI Number Write NPI# Here Physician Comment/Change : Physician Signature & Date Requested Please Sign/Date Here
== END 2024-06-06 11:55 | disposition home or self-care (01) ==
PROVIDERS: PCP Family Medicine; Visit Provider Orthopaedic Surgery Sports Medicine
DX: M17.12 Unilateral primary osteoarthritis, left knee (principal); Z96.652 Presence of left artificial knee joint; Z51.89 Encounter for other specified aftercare
CPT/HCPCS: 97110; 97140; 97161